=== PATIENT | male | born 1970 | race Caucasian/White ===

== ENCOUNTER 2024-02-26 01:23 | Emergency (ER) | payer BC ==
--- OUTSIDE RECORDS SUMMARY | 2024-02-26 01:27 | XMS REPORT | Continuity of Care Document ---
Author Name Unknown Address [address] [facility] [address] [place] [address] [facility] Address [address] [facility] [address] [place] [address] Care Team Providers Care Diagnostic Imaging Manager Name Role Phone Juliano Ribeiro Primary Care Physician [phone] Dory Attending Clinician Unavail able Leo Levy Attending Clinician Unavailab Darrius Lara Attending Clinician Unavailable Lobo Attending Clinician Unavail able Josy Pierre Attending Clinician Unavailable Luis Miguel Rodriguez MD Attending Clinician [phone] Domingo Myers Attending Clinician Unavailab le Brent Attending Clinician Unavail able LUIS MIGUEL RODRIGUEZ Attending Clinician Unavail able LUIS MIGUEL RODRIGUEZ Attending Clinician Unavail able Doctor Unassigned, [place] Attending Clinician U navailable Dory Admitting Clinician Unavail able Domingo Myers Admitting Clinician Unavailab le Lobo Admitting Clinician Unavail able @[phone] Admitting Clinician Unavailable Brent Admitting Clinician Unavail able LUIS MIGUEL RODRIGUEZ Admitting Clinician Unavail able Payers Payer Name Policy Type Policy Number Effective Date Expirati on Date Source [place] [id number] 2023 [place] [id number] 2022 00:00:00 Problems Condition Name Condition Details Condition Category Status Onset Date Resolution Date Last Treatment Date Treating Clinician Comments Source Tibialis anterior tendinitis Tibialis Anterior Tendinitis Problem Active 11-07 00:00: 00 [facility] Non-trauma tic partial tear of right rotator cuff Non-trauma tic Partial Tear of Right Rotator Cuff Problem Active 2022-10 00:00: 00 [facility] Tendinitis of long head of biceps brachii of right shoulder Tendinitis of Long Head of Biceps Brachii of Right Shoulder Problem Active 2022-10 00:00: 00 [facility] Tendinitis of right rotator cuff Tendinitis of Right Rotator Cuff Problem Active 2022-10 00:00: 00 [facility] Traumatic rupture of rotator cuff Traumatic Rupture of Rotator Cuff Problem Active 2022-10 00:00: 00 [facility] Tenosynovi tis of right radial styloid Tenosynovi tis of Right Radial Styloid Problem Active 2022-10 00:00: 00 [facility] Pain of right shoulder joint Pain of Right Shoulder Joint Problem Active 2022-10 00:00: 00 [facility] Closed dislocatio n of interphala ngeal joint of thumb Closed Dislocatio n of Interphala ngeal Joint of Thumb Problem Active 2022-10 00:00: 00 [facility] Right-side d piriformis syndrome Right-side d Piriformis Syndrome Problem Active 06-12 00:00: 00 [facility] Spontaneou s rupture of extensor tendons Spontaneou s Rupture of Extensor Tendons Problem Active 5-04 00:00: 00 [facility] Tendonitis of left foot Tendonitis of Left Foot Problem Active 5-04 00:00: 00 [facility] Pain in left foot Pain in Left Foot Problem Active 4- 00:00: 00 [facility] Localized, primary osteoarthr itis of the ankle and/or foot Localized, Primary Osteoarthr itis of the Ankle And/or Foot Problem Active 1-11 00:00: 00 [facility] No known active problems No known active problems Disease [facility] Allergies, Adverse Reactions, Alerts Allergy Name Allergy Type Status Severity Reaction(s) Onset Date Inactive Date Treating Clinician Comments Source No Known Allergie s DA Active U - 00:00: 00 [facility] Allergy to substanc e Active [facility] NO KNOWN ALLERGIE S Drug Class Active [facility] Social History Social Habit Start Date Stop Date Quantity Comments Source Exposure to SARS-CoV-2 (event) Not sure [facility] Gender identity [facility] 2021-05-24 00:00:00 2021-[facility]-24 00[facility]00 [facility] Sex Assigned At 1970 00:00:00 1970 00:00:00 [facility] Smoking Status Start Date Stop Date Source Tobacco smoking consumption unknown [facility] Former Smoker [facility] Medications Ordered Medication Name Filled Medication Name Start Date Stop Date Current Medication? Ordering Clinician Indication Dosage Frequency Signature (SIG) Comments Components Source azithromyci n 250 mg tablet TAKE 2 TABLETS BY MOUTH ON DAY 1, THEN 1 TABLET DAILY ON DAYS 2 TO 5. azithromyci n 250 mg tablet TAKE 2 TABLETS BY MOUTH ON DAY 1, THEN 1 TABLET DAILY ON DAYS 2 TO 5. No azithromyc in 250 mg tablet TAKE 2 TABLETS BY MOUTH ON DAY 1, THEN 1 TABLET DAILY ON DAYS 2 TO 5. [facility] methocarbam ol 750 mg tablet TAKE ONE (1) OR TWO (2) TABLET(S) BY MOUTH EVERY EIGHT HOURS NEEDED FOR MUSCLE SPASMS. methocarbam ol 750 mg tablet TAKE ONE (1) OR TWO (2) TABLET(S) BY MOUTH EVERY EIGHT HOURS NEEDED FOR MUSCLE SPASMS. No methocarba mol 750 mg tablet TAKE ONE (1) OR TWO (2) TABLET(S) BY MOUTH EVERY EIGHT HOURS NEEDED FOR MUSCLE SPASMS. [facility] Paxlovid 300 mg (150 mg x 2)-100 mg tablets in a dose pack (EUA) TAKE THREE (3) TABLET(S) BY MOUTH TWICE A DAY FOR 5 DAYS. Paxlovid 300 mg (150 mg x 2)-100 mg tablets in a dose pack (EUA) TAKE THREE (3) TABLET(S) BY MOUTH TWICE A DAY FOR 5 DAYS. No Paxlovid 300 mg (150 mg x 2)-100 mg tablets in a dose pack (EUA) TAKE THREE (3) TABLET(S) BY MOUTH TWICE A DAY FOR 5 DAYS. [facility] sumatriptan 5 mg/actuatio n nasal spray INSTILL ONE (1) SPRAY INTO THE NOSTRIL ONCE NEEDED. sumatriptan 5 mg/actuatio n nasal spray INSTILL ONE (1) SPRAY INTO THE NOSTRIL ONCE NEEDED. No sumatripta n 5 mg/actuati on nasal spray INSTILL ONE (1) SPRAY INTO THE NOSTRIL ONCE NEEDED. [facility] tadalafil 20 mg tablet TAKE ONE (1) TABLET(S) BY MOUTH 15 TO 30 MINUTES PRIOR TO SEXUAL ACTIVITY. tadalafil 20 mg tablet TAKE ONE (1) TABLET(S) BY MOUTH 15 TO 30 MINUTES PRIOR TO SEXUAL ACTIVITY. No tadalafil 20 mg tablet TAKE ONE (1) TABLET(S) BY MOUTH 15 TO 30 MINUTES PRIOR TO SEXUAL ACTIVITY. [facility] tadalafil 20 mg tablet (pulmonary hypertensio n) TAKE ONE (1) TABLET(S) BY MOUTH DAILY. tadalafil 20 mg tablet (pulmonary hypertensio n) TAKE ONE (1) TABLET(S) BY MOUTH DAILY. No tadalafil 20 mg tablet (pulmonary hypertensi on) TAKE ONE (1) TABLET(S) BY MOUTH DAILY. [facility] trazodone 100 mg tablet TAKE ONE (1) TABLET(S) BY MOUTH ONCE A DAY. trazodone 100 mg tablet TAKE ONE (1) TABLET(S) BY MOUTH ONCE A DAY. No trazodone 100 mg tablet TAKE ONE (1) TABLET(S) BY MOUTH ONCE A DAY. [facility] valacyclovi r 1 gram tablet TAKE ONE (1) TABLET(S) BY MOUTH ONCE A DAY. valacyclovi r 1 gram tablet TAKE ONE (1) TABLET(S) BY MOUTH ONCE A DAY. No valacyclov ir 1 gram tablet TAKE ONE (1) TABLET(S) BY MOUTH ONCE A DAY. [facility] Descovy 200 mg-25 mg tablet TAKE ONE (1) TABLET(S) BY MOUTH ONCE A DAY. Descovy 200 mg-25 mg tablet TAKE ONE (1) TABLET(S) BY MOUTH ONCE A DAY. No Descovy 200 mg-25 mg tablet TAKE ONE (1) TABLET(S) BY MOUTH ONCE A DAY. [facility] diclofenac ER 100 mg tablet,exte nded release 24 hr TAKE ONE (1) TABLET(S) BY MOUTH ONCE A DAY AT BEDTIME. diclofenac ER 100 mg tablet,exte nded release 24 hr TAKE ONE (1) TABLET(S) BY MOUTH ONCE A DAY AT BEDTIME. No diclofenac ER 100 mg tablet,ext ended release 24 hr TAKE ONE (1) TABLET(S) BY MOUTH ONCE A DAY AT BEDTIME. [facility] hydrocodone 10 mg-acetamin ophen 325 mg tablet TAKE ONE (1) TABLET(S) BY MOUTH EVERY SIX HOURS. hydrocodone 10 mg-acetamin ophen 325 mg tablet TAKE ONE (1) TABLET(S) BY MOUTH EVERY SIX HOURS. No hydrocodon e 10 mg-acetami nophen 325 mg tablet TAKE ONE (1) TABLET(S) BY MOUTH EVERY SIX HOURS. [facility] methocarbam ol 750 mg tablet TAKE ONE (1) OR TWO (2) TABLET(S) BY MOUTH EVERY EIGHT HOURS NEEDED FOR MUSCLE SPASMS. methocarbam ol 750 mg tablet TAKE ONE (1) OR TWO (2) TABLET(S) BY MOUTH EVERY EIGHT HOURS NEEDED FOR MUSCLE SPASMS. No methocarba mol 750 mg tablet TAKE ONE (1) OR TWO (2) TABLET(S) BY MOUTH EVERY EIGHT HOURS NEEDED FOR MUSCLE SPASMS. [facility] Descovy 200 mg-25 mg tablet TAKE ONE (1) TABLET(S) BY MOUTH ONCE A DAY. Descovy 200 mg-25 mg tablet TAKE ONE (1) TABLET(S) BY MOUTH ONCE A DAY. No Descovy 200 mg-25 mg tablet TAKE ONE (1) TABLET(S) BY MOUTH ONCE A DAY. [facility] hydrocodone 10 mg-acetamin ophen 325 mg tablet TAKE ONE (1) TABLET(S) BY MOUTH EVERY SIX HOURS NEEDED. hydrocodone 10 mg-acetamin ophen 325 mg tablet TAKE ONE (1) TABLET(S) BY MOUTH EVERY SIX HOURS NEEDED. No hydrocodon e 10 mg-acetami nophen 325 mg tablet TAKE ONE (1) TABLET(S) BY MOUTH EVERY SIX HOURS NEEDED. [facility] sumatriptan 5 mg/actuatio n nasal spray INSTILL ONE (1) SPRAY INTO THE NOSTRIL ONCE NEEDED. sumatriptan 5 mg/actuatio n nasal spray INSTILL ONE (1) SPRAY INTO THE NOSTRIL ONCE NEEDED. No sumatripta n 5 mg/actuati on nasal spray INSTILL ONE (1) SPRAY INTO THE NOSTRIL ONCE NEEDED. [facility] tadalafil 20 mg tablet (pulmonary hypertensio n) TAKE ONE (1) TABLET(S) BY MOUTH 15 TO 30 MINUTES BEFORE ACTIVITY. tadalafil 20 mg tablet (pulmonary hypertensio n) TAKE ONE (1) TABLET(S) BY MOUTH 15 TO 30 MINUTES BEFORE ACTIVITY. No tadalafil 20 mg tablet (pulmonary hypertensi on) TAKE ONE (1) TABLET(S) BY MOUTH 15 TO 30 MINUTES BEFORE ACTIVITY. [facility] trazodone 100 mg tablet TAKE ONE (1) TABLET(S) BY MOUTH ONCE A DAY. trazodone 100 mg tablet TAKE ONE (1) TABLET(S) BY MOUTH ONCE A DAY. No trazodone 100 mg tablet TAKE ONE (1) TABLET(S) BY MOUTH ONCE A DAY. [facility] valacyclovi r 1 gram tablet TAKE ONE (1) TABLET(S) BY MOUTH ONCE A DAY. valacyclovi r 1 gram tablet TAKE ONE (1) TABLET(S) BY MOUTH ONCE A DAY. No valacyclov ir 1 gram tablet TAKE ONE (1) TABLET(S) BY MOUTH ONCE A DAY. [facility] Paxlovid 300 mg (150 mg x 2)-100 mg tablets in a dose pack (EUA) TAKE THREE (3) TABLET(S) BY MOUTH TWICE A DAY FOR 5 DAYS. Paxlovid 300 mg (150 mg x 2)-100 mg tablets in a dose pack (EUA) TAKE THREE (3) TABLET(S) BY MOUTH TWICE A DAY FOR 5 DAYS. No Paxlovid 300 mg (150 mg x 2)-100 mg tablets in a dose pack (EUA) TAKE THREE (3) TABLET(S) BY MOUTH TWICE A DAY FOR 5 DAYS. [facility] sumatriptan 5 mg/actuatio n nasal spray INSTILL ONE (1) SPRAY INTO NOSTRIL ONCE NEEDED. sumatriptan 5 mg/actuatio n nasal spray INSTILL ONE (1) SPRAY INTO NOSTRIL ONCE NEEDED. No sumatripta n 5 mg/actuati on nasal spray INSTILL ONE (1) SPRAY INTO NOSTRIL ONCE NEEDED. [facility] Descovy 200 mg-25 mg tablet TAKE ONE (1) TABLET(S) BY MOUTH ONCE A DAY. Descovy 200 mg-25 mg tablet TAKE ONE (1) TABLET(S) BY MOUTH ONCE A DAY. No Descovy 200 mg-25 mg tablet TAKE ONE (1) TABLET(S) BY MOUTH ONCE A DAY. [facility] hydrocodone 10 mg-acetamin ophen 325 mg tablet TAKE ONE (1) TABLET(S) BY MOUTH EVERY SIX HOURS NEEDED. hydrocodone 10 mg-acetamin ophen 325 mg tablet TAKE ONE (1) TABLET(S) BY MOUTH EVERY SIX HOURS NEEDED. No hydrocodon e 10 mg-acetami nophen 325 mg tablet TAKE ONE (1) TABLET(S) BY MOUTH EVERY SIX HOURS NEEDED. [facility] sumatriptan 5 mg/actuatio n nasal spray INSTILL ONE (1) SPRAY INTO THE NOSTRIL ONCE NEEDED. sumatriptan 5 mg/actuatio n nasal spray INSTILL ONE (1) SPRAY INTO THE NOSTRIL ONCE NEEDED. No sumatripta n 5 mg/actuati on nasal spray INSTILL ONE (1) SPRAY INTO THE NOSTRIL ONCE NEEDED. [facility] tadalafil 20 mg tablet (pulmonary hypertensio n) TAKE ONE (1) TABLET(S) BY MOUTH 15 TO 30 MINUTES BEFORE ACTIVITY. tadalafil 20 mg tablet (pulmonary hypertensio n) TAKE ONE (1) TABLET(S) BY MOUTH 15 TO 30 MINUTES BEFORE ACTIVITY. No tadalafil 20 mg tablet (pulmonary hypertensi on) TAKE ONE (1) TABLET(S) BY MOUTH 15 TO 30 MINUTES BEFORE ACTIVITY. [facility] trazodone 100 mg tablet TAKE ONE (1) TABLET(S) BY MOUTH ONCE A DAY. trazodone 100 mg tablet TAKE ONE (1) TABLET(S) BY MOUTH ONCE A DAY. No trazodone 100 mg tablet TAKE ONE (1) TABLET(S) BY MOUTH ONCE A DAY. [facility] valacyclovi r 1 gram tablet TAKE ONE (1) TABLET(S) BY MOUTH ONCE A DAY. valacyclovi r 1 gram tablet TAKE ONE (1) TABLET(S) BY MOUTH ONCE A DAY. No valacyclov ir 1 gram tablet TAKE ONE (1) TABLET(S) BY MOUTH ONCE A DAY. [facility] Descovy 200 mg-25 mg tablet TAKE ONE (1) TABLET(S) BY MOUTH ONCE A DAY. Descovy 200 mg-25 mg tablet TAKE ONE (1) TABLET(S) BY MOUTH ONCE A DAY. No Descovy 200 mg-25 mg tablet TAKE ONE (1) TABLET(S) BY MOUTH ONCE A DAY. [facility] tadalafil 20 mg tablet TAKE ONE (1) TABLET(S) BY MOUTH 15-30 MINUTES BEFORE SEXUAL ACTIVITY NEEDED. tadalafil 20 mg tablet TAKE ONE (1) TABLET(S) BY MOUTH 15-30 MINUTES BEFORE SEXUAL ACTIVITY NEEDED. No tadalafil 20 mg tablet TAKE ONE (1) TABLET(S) BY MOUTH 15-30 MINUTES BEFORE SEXUAL ACTIVITY NEEDED. [facility] hydrocodone 10 mg-acetamin ophen 325 mg tablet TAKE ONE (1) TABLET(S) BY MOUTH EVERY SIX HOURS NEEDED. hydrocodone 10 mg-acetamin ophen 325 mg tablet TAKE ONE (1) TABLET(S) BY MOUTH EVERY SIX HOURS NEEDED. No hydrocodon e 10 mg-acetami nophen 325 mg tablet TAKE ONE (1) TABLET(S) BY MOUTH EVERY SIX HOURS NEEDED. [facility] sumatriptan 5 mg/actuatio n nasal spray INSTILL ONE (1) SPRAY INTO THE NOSTRIL ONCE NEEDED. sumatriptan 5 mg/actuatio n nasal spray INSTILL ONE (1) SPRAY INTO THE NOSTRIL ONCE NEEDED. No sumatripta n 5 mg/actuati on nasal spray INSTILL ONE (1) SPRAY INTO THE NOSTRIL ONCE NEEDED. [facility] tadalafil 20 mg tablet (pulmonary hypertensio n) TAKE ONE (1) TABLET(S) BY MOUTH 15 TO 30 MINUTES BEFORE ACTIVITY. tadalafil 20 mg tablet (pulmonary hypertensio n) TAKE ONE (1) TABLET(S) BY MOUTH 15 TO 30 MINUTES BEFORE ACTIVITY. No tadalafil 20 mg tablet (pulmonary hypertensi on) TAKE ONE (1) TABLET(S) BY MOUTH 15 TO 30 MINUTES BEFORE ACTIVITY. [facility] trazodone 100 mg tablet TAKE ONE (1) TABLET(S) BY MOUTH ONCE A DAY. trazodone 100 mg tablet TAKE ONE (1) TABLET(S) BY MOUTH ONCE A DAY. No trazodone 100 mg tablet TAKE ONE (1) TABLET(S) BY MOUTH ONCE A DAY. [facility] valacyclovi r 1 gram tablet TAKE ONE (1) TABLET(S) BY MOUTH ONCE A DAY. valacyclovi r 1 gram tablet TAKE ONE (1) TABLET(S) BY MOUTH ONCE A DAY. No valacyclov ir 1 gram tablet TAKE ONE (1) TABLET(S) BY MOUTH ONCE A DAY. [facility] tadalafil 20 mg tablet (pulmonary hypertensio n) TAKE ONE (1) TABLET(S) BY MOUTH DAILY. tadalafil 20 mg tablet (pulmonary hypertensio n) TAKE ONE (1) TABLET(S) BY MOUTH DAILY. No tadalafil 20 mg tablet (pulmonary hypertensi on) TAKE ONE (1) TABLET(S) BY MOUTH DAILY. [facility] Descovy 200 mg-25 mg tablet TAKE ONE (1) TABLET(S) BY MOUTH ONCE A DAY. Descovy 200 mg-25 mg tablet TAKE ONE (1) TABLET(S) BY MOUTH ONCE A DAY. No Descovy 200 mg-25 mg tablet TAKE ONE (1) TABLET(S) BY MOUTH ONCE A DAY. [facility] hydrocodone 10 mg-acetamin ophen 325 mg tablet TAKE ONE (1) TABLET(S) BY MOUTH EVERY SIX HOURS NEEDED. hydrocodone 10 mg-acetamin ophen 325 mg tablet TAKE ONE (1) TABLET(S) BY MOUTH EVERY SIX HOURS NEEDED. No hydrocodon e 10 mg-acetami nophen 325 mg tablet TAKE ONE (1) TABLET(S) BY MOUTH EVERY SIX HOURS NEEDED. [facility] trazodone 100 mg tablet TAKE ONE (1) TABLET(S) BY MOUTH AT BEDTIME NEEDED. trazodone 100 mg tablet TAKE ONE (1) TABLET(S) BY MOUTH AT BEDTIME NEEDED. No trazodone 100 mg tablet TAKE ONE (1) TABLET(S) BY MOUTH AT BEDTIME NEEDED. [facility] methocarbam ol 500 mg tablet Take 1 tablet every 8 hours by oral route as needed. methocarbam ol 500 mg tablet Take 1 tablet every 8 hours by oral route as needed. No 1 Q8H methocarba mol 500 mg tablet Take 1 tablet every 8 hours by oral route as needed. [facility] sumatriptan 5 mg/actuatio n nasal spray INSTILL ONE (1) SPRAY INTO THE NOSTRIL ONCE NEEDED. sumatriptan 5 mg/actuatio n nasal spray INSTILL ONE (1) SPRAY INTO THE NOSTRIL ONCE NEEDED. No sumatripta n 5 mg/actuati on nasal spray INSTILL ONE (1) SPRAY INTO THE NOSTRIL ONCE NEEDED. [facility] tadalafil 20 mg tablet (pulmonary hypertensio n) TAKE ONE (1) TABLET(S) BY MOUTH 15 TO 30 MINUTES BEFORE ACTIVITY. tadalafil 20 mg tablet (pulmonary hypertensio n) TAKE ONE (1) TABLET(S) BY MOUTH 15 TO 30 MINUTES BEFORE ACTIVITY. No tadalafil 20 mg tablet (pulmonary hypertensi on) TAKE ONE (1) TABLET(S) BY MOUTH 15 TO 30 MINUTES BEFORE ACTIVITY. [facility] trazodone 100 mg tablet TAKE ONE (1) TABLET(S) BY MOUTH ONCE A DAY. trazodone 100 mg tablet TAKE ONE (1) TABLET(S) BY MOUTH ONCE A DAY. No trazodone 100 mg tablet TAKE ONE (1) TABLET(S) BY MOUTH ONCE A DAY. [facility] valacyclovi r 1 gram tablet TAKE ONE (1) TABLET(S) BY MOUTH ONCE A DAY. valacyclovi r 1 gram tablet TAKE ONE (1) TABLET(S) BY MOUTH ONCE A DAY. No valacyclov ir 1 gram tablet TAKE ONE (1) TABLET(S) BY MOUTH ONCE A DAY. [facility] valacyclovi r 1 gram tablet TAKE ONE (1) TABLET(S) BY MOUTH DAILY. valacyclovi r 1 gram tablet TAKE ONE (1) TABLET(S) BY MOUTH DAILY. No valacyclov ir 1 gram tablet TAKE ONE (1) TABLET(S) BY MOUTH DAILY. [facility] Descovy 200 mg-25 mg tablet TAKE ONE (1) TABLET(S) BY MOUTH ONCE A DAY. Descovy 200 mg-25 mg tablet TAKE ONE (1) TABLET(S) BY MOUTH ONCE A DAY. No Descovy 200 mg-25 mg tablet TAKE ONE (1) TABLET(S) BY MOUTH ONCE A DAY. [facility] hydrocodone 10 mg-acetamin ophen 325 mg tablet TAKE ONE (1) TABLET(S) BY MOUTH EVERY SIX HOURS NEEDED. hydrocodone 10 mg-acetamin ophen 325 mg tablet TAKE ONE (1) TABLET(S) BY MOUTH EVERY SIX HOURS NEEDED. No hydrocodon e 10 mg-acetami nophen 325 mg tablet TAKE ONE (1) TABLET(S) BY MOUTH EVERY SIX HOURS NEEDED. [facility] methocarbam ol 500 mg tablet Take 1 tablet every 8 hours by oral route as needed. methocarbam ol 500 mg tablet Take 1 tablet every 8 hours by oral route as needed. No 1 Q8H methocarba mol 500 mg tablet Take 1 tablet every 8 hours by oral route as needed. [facility] sumatriptan 5 mg/actuatio n nasal spray INSTILL ONE (1) SPRAY INTO THE NOSTRIL ONCE NEEDED. sumatriptan 5 mg/actuatio n nasal spray INSTILL ONE (1) SPRAY INTO THE NOSTRIL ONCE NEEDED. No sumatripta n 5 mg/actuati on nasal spray INSTILL ONE (1) SPRAY INTO THE NOSTRIL ONCE NEEDED. [facility] tadalafil 20 mg tablet (pulmonary hypertensio n) TAKE ONE (1) TABLET(S) BY MOUTH 15 TO 30 MINUTES BEFORE ACTIVITY. tadalafil 20 mg tablet (pulmonary hypertensio n) TAKE ONE (1) TABLET(S) BY MOUTH 15 TO 30 MINUTES BEFORE ACTIVITY. No tadalafil 20 mg tablet (pulmonary hypertensi on) TAKE ONE (1) TABLET(S) BY MOUTH 15 TO 30 MINUTES BEFORE ACTIVITY. [facility] trazodone 100 mg tablet TAKE ONE (1) TABLET(S) BY MOUTH ONCE A DAY. trazodone 100 mg tablet TAKE ONE (1) TABLET(S) BY MOUTH ONCE A DAY. No trazodone 100 mg tablet TAKE ONE (1) TABLET(S) BY MOUTH ONCE A DAY. [facility] valacyclovi r 1 gram tablet TAKE ONE (1) TABLET(S) BY MOUTH ONCE A DAY. valacyclovi r 1 gram tablet TAKE ONE (1) TABLET(S) BY MOUTH ONCE A DAY. No valacyclov ir 1 gram tablet TAKE ONE (1) TABLET(S) BY MOUTH ONCE A DAY. [facility] Descovy 200 mg-25 mg tablet TAKE ONE (1) TABLET(S) BY MOUTH ONCE A DAY. Descovy 200 mg-25 mg tablet TAKE ONE (1) TABLET(S) BY MOUTH ONCE A DAY. No Descovy 200 mg-25 mg tablet TAKE ONE (1) TABLET(S) BY MOUTH ONCE A DAY. [facility] hydrocodone 10 mg-acetamin ophen 325 mg tablet TAKE ONE (1) TABLET(S) BY MOUTH EVERY SIX HOURS NEEDED. hydrocodone 10 mg-acetamin ophen 325 mg tablet TAKE ONE (1) TABLET(S) BY MOUTH EVERY SIX HOURS NEEDED. No hydrocodon e 10 mg-acetami nophen 325 mg tablet TAKE ONE (1) TABLET(S) BY MOUTH EVERY SIX HOURS NEEDED. [facility] methocarbam ol 500 mg tablet TAKE ONE (1) TABLET BY MOUTH EVERY 8 HOURS NEEDED. methocarbam ol 500 mg tablet TAKE ONE (1) TABLET BY MOUTH EVERY 8 HOURS NEEDED. No methocarba mol 500 mg tablet TAKE ONE (1) TABLET BY MOUTH EVERY 8 HOURS NEEDED. [facility] sumatriptan 5 mg/actuatio n nasal spray INSTILL ONE (1) SPRAY INTO THE NOSTRIL ONCE NEEDED. sumatriptan 5 mg/actuatio n nasal spray INSTILL ONE (1) SPRAY INTO THE NOSTRIL ONCE NEEDED. No sumatripta n 5 mg/actuati on nasal spray INSTILL ONE (1) SPRAY INTO THE NOSTRIL ONCE NEEDED. [facility] tadalafil 20 mg tablet (pulmonary hypertensio n) TAKE ONE (1) TABLET(S) BY MOUTH 15 TO 30 MINUTES BEFORE ACTIVITY. tadalafil 20 mg tablet (pulmonary hypertensio n) TAKE ONE (1) TABLET(S) BY MOUTH 15 TO 30 MINUTES BEFORE ACTIVITY. No tadalafil 20 mg tablet (pulmonary hypertensi on) TAKE ONE (1) TABLET(S) BY MOUTH 15 TO 30 MINUTES BEFORE ACTIVITY. [facility] trazodone 100 mg tablet TAKE ONE (1) TABLET(S) BY MOUTH ONCE A DAY. trazodone 100 mg tablet TAKE ONE (1) TABLET(S) BY MOUTH ONCE A DAY. No trazodone 100 mg tablet TAKE ONE (1) TABLET(S) BY MOUTH ONCE A DAY. [facility] valacyclovi r 1 gram tablet TAKE ONE (1) TABLET(S) BY MOUTH ONCE A DAY. valacyclovi r 1 gram tablet TAKE ONE (1) TABLET(S) BY MOUTH ONCE A DAY. No valacyclov ir 1 gram tablet TAKE ONE (1) TABLET(S) BY MOUTH ONCE A DAY. [facility] Descovy 200 mg-25 mg tablet TAKE ONE (1) TABLET(S) BY MOUTH ONCE A DAY. Descovy 200 mg-25 mg tablet TAKE ONE (1) TABLET(S) BY MOUTH ONCE A DAY. No Descovy 200 mg-25 mg tablet TAKE ONE (1) TABLET(S) BY MOUTH ONCE A DAY. [facility] hydrocodone 10 mg-acetamin ophen 325 mg tablet TAKE ONE (1) TABLET(S) BY MOUTH EVERY SIX HOURS NEEDED. hydrocodone 10 mg-acetamin ophen 325 mg tablet TAKE ONE (1) TABLET(S) BY MOUTH EVERY SIX HOURS NEEDED. No hydrocodon e 10 mg-acetami nophen 325 mg tablet TAKE ONE (1) TABLET(S) BY MOUTH EVERY SIX HOURS NEEDED. [facility] methocarbam ol 500 mg tablet TAKE ONE (1) TABLET BY MOUTH EVERY 8 HOURS NEEDED. methocarbam ol 500 mg tablet TAKE ONE (1) TABLET BY MOUTH EVERY 8 HOURS NEEDED. No methocarba mol 500 mg tablet TAKE ONE (1) TABLET BY MOUTH EVERY 8 HOURS NEEDED. [facility] sumatriptan 5 mg/actuatio n nasal spray INSTILL ONE (1) SPRAY INTO THE NOSTRIL ONCE NEEDED. sumatriptan 5 mg/actuatio n nasal spray INSTILL ONE (1) SPRAY INTO THE NOSTRIL ONCE NEEDED. No sumatripta n 5 mg/actuati on nasal spray INSTILL ONE (1) SPRAY INTO THE NOSTRIL ONCE NEEDED. [facility] tadalafil 20 mg tablet (pulmonary hypertensio n) TAKE ONE (1) TABLET(S) BY MOUTH 15 TO 30 MINUTES BEFORE ACTIVITY. tadalafil 20 mg tablet (pulmonary hypertensio n) TAKE ONE (1) TABLET(S) BY MOUTH 15 TO 30 MINUTES BEFORE ACTIVITY. No tadalafil 20 mg tablet (pulmonary hypertensi on) TAKE ONE (1) TABLET(S) BY MOUTH 15 TO 30 MINUTES BEFORE ACTIVITY. [facility] trazodone 100 mg tablet TAKE ONE (1) TABLET(S) BY MOUTH ONCE A DAY. trazodone 100 mg tablet TAKE ONE (1) TABLET(S) BY MOUTH ONCE A DAY. No trazodone 100 mg tablet TAKE ONE (1) TABLET(S) BY MOUTH ONCE A DAY. [facility] valacyclovi r 1 gram tablet TAKE ONE (1) TABLET(S) BY MOUTH ONCE A DAY. valacyclovi r 1 gram tablet TAKE ONE (1) TABLET(S) BY MOUTH ONCE A DAY. No valacyclov ir 1 gram tablet TAKE ONE (1) TABLET(S) BY MOUTH ONCE A DAY. [facility] albuterol sulfate HFA 90 mcg/actuati on aerosol inhaler INHALE TWO (2) PUFF(S) BY MOUTH EVERY FOUR TO SIX HOURS. albuterol sulfate HFA 90 mcg/actuati on aerosol inhaler INHALE TWO (2) PUFF(S) BY MOUTH EVERY FOUR TO SIX HOURS. No albuterol sulfate HFA 90 mcg/actuat ion aerosol inhaler INHALE TWO (2) PUFF(S) BY MOUTH EVERY FOUR TO SIX HOURS. [facility] bromphenira mine-pseudo ephedrine-D M 2 mg-30 mg-10 mg/5 mL oral syrup TAKE FIVE (5) ML(S) BY MOUTH FOUR TIMES A DAY FOR 10 DAYS. bromphenira mine-pseudo ephedrine-D M 2 mg-30 mg-10 mg/5 mL oral syrup TAKE FIVE (5) ML(S) BY MOUTH FOUR TIMES A DAY FOR 10 DAYS. No bromphenir amine-pseu doephedrin e-DM 2 mg-30 mg-10 mg/5 mL oral syrup TAKE FIVE (5) ML(S) BY MOUTH FOUR TIMES A DAY FOR 10 DAYS. [facility] Descovy 200 mg-25 mg tablet TAKE ONE (1) TABLET(S) BY MOUTH ONCE A DAY. Descovy 200 mg-25 mg tablet TAKE ONE (1) TABLET(S) BY MOUTH ONCE A DAY. No Descovy 200 mg-25 mg tablet TAKE ONE (1) TABLET(S) BY MOUTH ONCE A DAY. [facility] hydrocodone 10 mg-acetamin ophen 325 mg tablet TAKE ONE (1) TABLET(S) BY MOUTH EVERY SIX HOURS NEEDED. hydrocodone 10 mg-acetamin ophen 325 mg tablet TAKE ONE (1) TABLET(S) BY MOUTH EVERY SIX HOURS NEEDED. No hydrocodon e 10 mg-acetami nophen 325 mg tablet TAKE ONE (1) TABLET(S) BY MOUTH EVERY SIX HOURS NEEDED. [facility] methocarbam ol 500 mg tablet TAKE ONE (1) TABLET BY MOUTH EVERY 8 HOURS NEEDED. methocarbam ol 500 mg tablet TAKE ONE (1) TABLET BY MOUTH EVERY 8 HOURS NEEDED. No methocarba mol 500 mg tablet TAKE ONE (1) TABLET BY MOUTH EVERY 8 HOURS NEEDED. [facility] oseltamivir 75 mg capsule TAKE ONE (1) CAPSULE(S) BY MOUTH TWICE A DAY FOR 5 DAYS. oseltamivir 75 mg capsule TAKE ONE (1) CAPSULE(S) BY MOUTH TWICE A DAY FOR 5 DAYS. No oseltamivi r 75 mg capsule TAKE ONE (1) CAPSULE(S) BY MOUTH TWICE A DAY FOR 5 DAYS. [facility] sumatriptan 5 mg/actuatio n nasal spray INSTILL ONE (1) SPRAY INTO THE NOSTRIL ONCE NEEDED. sumatriptan 5 mg/actuatio n nasal spray INSTILL ONE (1) SPRAY INTO THE NOSTRIL ONCE NEEDED. No sumatripta n 5 mg/actuati on nasal spray INSTILL ONE (1) SPRAY INTO THE NOSTRIL ONCE NEEDED. [facility] tadalafil 20 mg tablet (pulmonary hypertensio n) TAKE ONE (1) TABLET(S) BY MOUTH 15 TO 30 MINUTES BEFORE ACTIVITY. tadalafil 20 mg tablet (pulmonary hypertensio n) TAKE ONE (1) TABLET(S) BY MOUTH 15 TO 30 MINUTES BEFORE ACTIVITY. No tadalafil 20 mg tablet (pulmonary hypertensi on) TAKE ONE (1) TABLET(S) BY MOUTH 15 TO 30 MINUTES BEFORE ACTIVITY. [facility] trazodone 100 mg tablet TAKE ONE (1) TABLET(S) BY MOUTH ONCE A DAY. trazodone 100 mg tablet TAKE ONE (1) TABLET(S) BY MOUTH ONCE A DAY. No trazodone 100 mg tablet TAKE ONE (1) TABLET(S) BY MOUTH ONCE A DAY. [facility] valacyclovi r 1 gram tablet TAKE ONE (1) TABLET(S) BY MOUTH ONCE A DAY. valacyclovi r 1 gram tablet TAKE ONE (1) TABLET(S) BY MOUTH ONCE A DAY. No valacyclov ir 1 gram tablet TAKE ONE (1) TABLET(S) BY MOUTH ONCE A DAY. [facility] azithromyci n 250 mg tablet TAKE 2 TABLETS BY MOUTH ON DAY 1, THEN 1 TABLET DAILY ON DAYS 2 TO 5. azithromyci n 250 mg tablet TAKE 2 TABLETS BY MOUTH ON DAY 1, THEN 1 TABLET DAILY ON DAYS 2 TO 5. No azithromyc in 250 mg tablet TAKE 2 TABLETS BY MOUTH ON DAY 1, THEN 1 TABLET DAILY ON DAYS 2 TO 5. [facility] Descovy 200 mg-25 mg tablet TAKE ONE (1) TABLET(S) BY MOUTH ONCE A DAY. Descovy 200 mg-25 mg tablet TAKE ONE (1) TABLET(S) BY MOUTH ONCE A DAY. No Descovy 200 mg-25 mg tablet TAKE ONE (1) TABLET(S) BY MOUTH ONCE A DAY. [facility] diclofenac ER 100 mg tablet,exte nded release 24 hr TAKE ONE (1) TABLET(S) BY MOUTH ONCE A DAY AT BEDTIME. diclofenac ER 100 mg tablet,exte nded release 24 hr TAKE ONE (1) TABLET(S) BY MOUTH ONCE A DAY AT BEDTIME. No diclofenac ER 100 mg tablet,ext ended release 24 hr TAKE ONE (1) TABLET(S) BY MOUTH ONCE A DAY AT BEDTIME. [facility] hydrocodone 10 mg-acetamin ophen 325 mg tablet TAKE ONE (1) TABLET(S) BY MOUTH EVERY SIX HOURS. hydrocodone 10 mg-acetamin ophen 325 mg tablet TAKE ONE (1) TABLET(S) BY MOUTH EVERY SIX HOURS. No hydrocodon e 10 mg-acetami nophen 325 mg tablet TAKE ONE (1) TABLET(S) BY MOUTH EVERY SIX HOURS. [facility] hydrocortis one 2.5 % topical cream APPLY TO AFFECTED AREA TWICE A DAY. hydrocortis one 2.5 % topical cream APPLY TO AFFECTED AREA TWICE A DAY. No hydrocorti sone 2.5 % topical cream APPLY TO AFFECTED AREA TWICE A DAY. [facility] ketoconazol e 2 % topical cream APPLY TO AFFECTED AREA TWICE A DAY. ketoconazol e 2 % topical cream APPLY TO AFFECTED AREA TWICE A DAY. No ketoconazo le 2 % topical cream APPLY TO AFFECTED AREA TWICE A DAY. [facility] methocarbam ol 750 mg tablet TAKE ONE (1) OR TWO (2) TABLET(S) BY MOUTH EVERY EIGHT HOURS NEEDED FOR MUSCLE SPASMS. methocarbam ol 750 mg tablet TAKE ONE (1) OR TWO (2) TABLET(S) BY MOUTH EVERY EIGHT HOURS NEEDED FOR MUSCLE SPASMS. No methocarba mol 750 mg tablet TAKE ONE (1) OR TWO (2) TABLET(S) BY MOUTH EVERY EIGHT HOURS NEEDED FOR MUSCLE SPASMS. [facility] Paxlovid 300 mg (150 mg x 2)-100 mg tablets in a dose pack (EUA) TAKE THREE (3) TABLET(S) BY MOUTH TWICE A DAY FOR 5 DAYS. Paxlovid 300 mg (150 mg x 2)-100 mg tablets in a dose pack (EUA) TAKE THREE (3) TABLET(S) BY MOUTH TWICE A DAY FOR 5 DAYS. No Paxlovid 300 mg (150 mg x 2)-100 mg tablets in a dose pack (EUA) TAKE THREE (3) TABLET(S) BY MOUTH TWICE A DAY FOR 5 DAYS. [facility] sumatriptan 5 mg/actuatio n nasal spray INSTILL ONE (1) SPRAY INTO NOSTRIL ONCE NEEDED. sumatriptan 5 mg/actuatio n nasal spray INSTILL ONE (1) SPRAY INTO NOSTRIL ONCE NEEDED. No sumatripta n 5 mg/actuati on nasal spray INSTILL ONE (1) SPRAY INTO NOSTRIL ONCE NEEDED. [facility] tadalafil 20 mg tablet TAKE ONE (1) TABLET(S) BY MOUTH 15-30 MINUTES BEFORE SEXUAL ACTIVITY NEEDED. tadalafil 20 mg tablet TAKE ONE (1) TABLET(S) BY MOUTH 15-30 MINUTES BEFORE SEXUAL ACTIVITY NEEDED. No tadalafil 20 mg tablet TAKE ONE (1) TABLET(S) BY MOUTH 15-30 MINUTES BEFORE SEXUAL ACTIVITY NEEDED. [facility] tadalafil 20 mg tablet (pulmonary hypertensio n) TAKE ONE (1) TABLET(S) BY MOUTH DAILY. tadalafil 20 mg tablet (pulmonary hypertensio n) TAKE ONE (1) TABLET(S) BY MOUTH DAILY. No tadalafil 20 mg tablet (pulmonary hypertensi on) TAKE ONE (1) TABLET(S) BY MOUTH DAILY. [facility] trazodone 100 mg tablet TAKE ONE (1) TABLET(S) BY MOUTH AT BEDTIME NEEDED. trazodone 100 mg tablet TAKE ONE (1) TABLET(S) BY MOUTH AT BEDTIME NEEDED. No trazodone 100 mg tablet TAKE ONE (1) TABLET(S) BY MOUTH AT BEDTIME NEEDED. [facility] valacyclovi r 1 gram tablet TAKE ONE (1) TABLET(S) BY MOUTH DAILY. valacyclovi r 1 gram tablet TAKE ONE (1) TABLET(S) BY MOUTH DAILY. No valacyclov ir 1 gram tablet TAKE ONE (1) TABLET(S) BY MOUTH DAILY. [facility] azithromyci n 250 mg tablet TAKE 2 TABLETS BY MOUTH ON DAY 1, THEN 1 TABLET DAILY ON DAYS 2 TO 5. azithromyci n 250 mg tablet TAKE 2 TABLETS BY MOUTH ON DAY 1, THEN 1 TABLET DAILY ON DAYS 2 TO 5. No azithromyc in 250 mg tablet TAKE 2 TABLETS BY MOUTH ON DAY 1, THEN 1 TABLET DAILY ON DAYS 2 TO 5. [facility] bupropion HCl 150 mg tablet,12 hr sustained-r elease(smok ing deterrent) TAKE ONE (1) TABLET(S) BY MOUTH TWICE A DAY. bupropion HCl 150 mg tablet,12 hr sustained-r elease(smok ing deterrent) TAKE ONE (1) TABLET(S) BY MOUTH TWICE A DAY. No bupropion HCl 150 mg tablet,12 hr sustained- release(sm oking deterrent) TAKE ONE (1) TABLET(S) BY MOUTH TWICE A DAY. [facility] cephalexin 500 mg capsule Take 1 capsule every 6 hours by oral route. cephalexin 500 mg capsule Take 1 capsule every 6 hours by oral route. No cephalexin 500 mg capsule Take 1 capsule every 6 hours by oral route. [facility] Descovy 200 mg-25 mg tablet TAKE ONE (1) TABLET(S) BY MOUTH ONCE A DAY. Descovy 200 mg-25 mg tablet TAKE ONE (1) TABLET(S) BY MOUTH ONCE A DAY. No Descovy 200 mg-25 mg tablet TAKE ONE (1) TABLET(S) BY MOUTH ONCE A DAY. [facility] diclofenac ER 100 mg tablet,exte nded release 24 hr TAKE ONE (1) TABLET(S) BY MOUTH ONCE A DAY AT BEDTIME. diclofenac ER 100 mg tablet,exte nded release 24 hr TAKE ONE (1) TABLET(S) BY MOUTH ONCE A DAY AT BEDTIME. No diclofenac ER 100 mg tablet,ext ended release 24 hr TAKE ONE (1) TABLET(S) BY MOUTH ONCE A DAY AT BEDTIME. [facility] hydrocodone 10 mg-acetamin ophen 325 mg tablet TAKE ONE (1) TABLET(S) BY MOUTH EVERY SIX HOURS. hydrocodone 10 mg-acetamin ophen 325 mg tablet TAKE ONE (1) TABLET(S) BY MOUTH EVERY SIX HOURS. No hydrocodon e 10 mg-acetami nophen 325 mg tablet TAKE ONE (1) TABLET(S) BY MOUTH EVERY SIX HOURS. [facility] hydrocodone 5 mg-acetamin ophen 325 mg tablet Take 1 tablet every 4-6 hours by oral route. hydrocodone 5 mg-acetamin ophen 325 mg tablet Take 1 tablet every 4-6 hours by oral route. No hydrocodon e 5 mg-acetami nophen 325 mg tablet Take 1 tablet every 4-6 hours by oral route. [facility] hydrocortis one 2.5 % topical cream APPLY TO AFFECTED AREA TWICE A DAY. hydrocortis one 2.5 % topical cream APPLY TO AFFECTED AREA TWICE A DAY. No hydrocorti sone 2.5 % topical cream APPLY TO AFFECTED AREA TWICE A DAY. [facility] ketoconazol e 2 % topical cream APPLY TO AFFECTED AREA TWICE A DAY. ketoconazol e 2 % topical cream APPLY TO AFFECTED AREA TWICE A DAY. No ketoconazo le 2 % topical cream APPLY TO AFFECTED AREA TWICE A DAY. [facility] methocarbam ol 750 mg tablet TAKE ONE (1) OR TWO (2) TABLET(S) BY MOUTH EVERY EIGHT HOURS NEEDED FOR MUSCLE SPASMS. methocarbam ol 750 mg tablet TAKE ONE (1) OR TWO (2) TABLET(S) BY MOUTH EVERY EIGHT HOURS NEEDED FOR MUSCLE SPASMS. No methocarba mol 750 mg tablet TAKE ONE (1) OR TWO (2) TABLET(S) BY MOUTH EVERY EIGHT HOURS NEEDED FOR MUSCLE SPASMS. [facility] Paxlovid 300 mg (150 mg x 2)-100 mg tablets in a dose pack (EUA) TAKE THREE (3) TABLET(S) BY MOUTH TWICE A DAY FOR 5 DAYS. Paxlovid 300 mg (150 mg x 2)-100 mg tablets in a dose pack (EUA) TAKE THREE (3) TABLET(S) BY MOUTH TWICE A DAY FOR 5 DAYS. No Paxlovid 300 mg (150 mg x 2)-100 mg tablets in a dose pack (EUA) TAKE THREE (3) TABLET(S) BY MOUTH TWICE A DAY FOR 5 DAYS. [facility] sumatriptan 5 mg/actuatio n nasal spray INSTILL ONE (1) SPRAY INTO NOSTRIL ONCE NEEDED. sumatriptan 5 mg/actuatio n nasal spray INSTILL ONE (1) SPRAY INTO NOSTRIL ONCE NEEDED. No sumatripta n 5 mg/actuati on nasal spray INSTILL ONE (1) SPRAY INTO NOSTRIL ONCE NEEDED. [facility] tadalafil 20 mg tablet TAKE ONE (1) TABLET(S) BY MOUTH 15-30 MINUTES BEFORE SEXUAL ACTIVITY NEEDED. tadalafil 20 mg tablet TAKE ONE (1) TABLET(S) BY MOUTH 15-30 MINUTES BEFORE SEXUAL ACTIVITY NEEDED. No tadalafil 20 mg tablet TAKE ONE (1) TABLET(S) BY MOUTH 15-30 MINUTES BEFORE SEXUAL ACTIVITY NEEDED. [facility] tadalafil 20 mg tablet (pulmonary hypertensio n) TAKE ONE (1) TABLET(S) BY MOUTH DAILY. tadalafil 20 mg tablet (pulmonary hypertensio n) TAKE ONE (1) TABLET(S) BY MOUTH DAILY. No tadalafil 20 mg tablet (pulmonary hypertensi on) TAKE ONE (1) TABLET(S) BY MOUTH DAILY. [facility] trazodone 100 mg tablet TAKE ONE (1) TABLET(S) BY MOUTH AT BEDTIME NEEDED. trazodone 100 mg tablet TAKE ONE (1) TABLET(S) BY MOUTH AT BEDTIME NEEDED. No trazodone 100 mg tablet TAKE ONE (1) TABLET(S) BY MOUTH AT BEDTIME NEEDED. [facility] valacyclovi r 1 gram tablet TAKE ONE (1) TABLET(S) BY MOUTH DAILY. valacyclovi r 1 gram tablet TAKE ONE (1) TABLET(S) BY MOUTH DAILY. No valacyclov ir 1 gram tablet TAKE ONE (1) TABLET(S) BY MOUTH DAILY. [facility] azithromyci n 250 mg tablet TAKE 2 TABLETS BY MOUTH ON DAY 1, THEN 1 TABLET DAILY ON DAYS 2 TO 5. azithromyci n 250 mg tablet TAKE 2 TABLETS BY MOUTH ON DAY 1, THEN 1 TABLET DAILY ON DAYS 2 TO 5. No azithromyc in 250 mg tablet TAKE 2 TABLETS BY MOUTH ON DAY 1, THEN 1 TABLET DAILY ON DAYS 2 TO 5. [facility] bupropion HCl 150 mg tablet,12 hr sustained-r elease(smok ing deterrent) TAKE ONE (1) TABLET(S) BY MOUTH TWICE A DAY. bupropion HCl 150 mg tablet,12 hr sustained-r elease(smok ing deterrent) TAKE ONE (1) TABLET(S) BY MOUTH TWICE A DAY. No bupropion HCl 150 mg tablet,12 hr sustained- release(sm oking deterrent) TAKE ONE (1) TABLET(S) BY MOUTH TWICE A DAY. [facility] cephalexin 500 mg capsule Take 1 capsule every 6 hours by oral route. cephalexin 500 mg capsule Take 1 capsule every 6 hours by oral route. No cephalexin 500 mg capsule Take 1 capsule every 6 hours by oral route. [facility] Descovy 200 mg-25 mg tablet TAKE ONE (1) TABLET(S) BY MOUTH ONCE A DAY. Descovy 200 mg-25 mg tablet TAKE ONE (1) TABLET(S) BY MOUTH ONCE A DAY. No Descovy 200 mg-25 mg tablet TAKE ONE (1) TABLET(S) BY MOUTH ONCE A DAY. [facility] diclofenac ER 100 mg tablet,exte nded release 24 hr TAKE ONE (1) TABLET(S) BY MOUTH ONCE A DAY AT BEDTIME. diclofenac ER 100 mg tablet,exte nded release 24 hr TAKE ONE (1) TABLET(S) BY MOUTH ONCE A DAY AT BEDTIME. No diclofenac ER 100 mg tablet,ext ended release 24 hr TAKE ONE (1) TABLET(S) BY MOUTH ONCE A DAY AT BEDTIME. [facility] hydrocodone 10 mg-acetamin ophen 325 mg tablet TAKE ONE (1) TABLET(S) BY MOUTH EVERY SIX HOURS NEEDED. hydrocodone 10 mg-acetamin ophen 325 mg tablet TAKE ONE (1) TABLET(S) BY MOUTH EVERY SIX HOURS NEEDED. No hydrocodon e 10 mg-acetami nophen 325 mg tablet TAKE ONE (1) TABLET(S) BY MOUTH EVERY SIX HOURS NEEDED. [facility] hydrocodone 5 mg-acetamin ophen 325 mg tablet Take 1 tablet every 4-6 hours by oral route. hydrocodone 5 mg-acetamin ophen 325 mg tablet Take 1 tablet every 4-6 hours by oral route. No hydrocodon e 5 mg-acetami nophen 325 mg tablet Take 1 tablet every 4-6 hours by oral route. [facility] hydrocortis one 2.5 % topical cream APPLY TO AFFECTED AREA TWICE A DAY. hydrocortis one 2.5 % topical cream APPLY TO AFFECTED AREA TWICE A DAY. No hydrocorti sone 2.5 % topical cream APPLY TO AFFECTED AREA TWICE A DAY. [facility] ketoconazol e 2 % topical cream APPLY TO AFFECTED AREA TWICE A DAY. ketoconazol e 2 % topical cream APPLY TO AFFECTED AREA TWICE A DAY. No ketoconazo le 2 % topical cream APPLY TO AFFECTED AREA TWICE A DAY. [facility] No known medications No [facility] Vital Signs Vital Name Observation Time Observation Value Comments S ource Height 2023-11-07 00:00:00 70 [in_i] [facility] BMI (Body Mass Index) 2023-11-07 00:00:00 28 kg/m2 [facility] Body Weight 2023-11-07 00:00:00 195 [lb_av] [facility] BMI (Body Mass Index) 2023-10-05 00:00:00 28 kg/m2 [facility] Height 2023-10-05 00:00:00 70 [in_i] [facility] Body Weight 2023-10-05 00:00:00 195 [lb_av] [facility] Height 2023-09-20 00:00:00 70 [in_i] [facility] Height 2023-09-14 00:00:00 70 [in_i] [facility] Body Weight 2023-09-14 00:00:00 195 [lb_av] [facility] BMI (Body Mass Index) 2023-09-14 00:00:00 28 kg/m2 [facility] Height 2023-01-25 00:00:00 70 [in_i] [facility] BMI (Body Mass Index) 2023-01-25 00:00:00 28 kg/m2 [facility] Body Weight 2023-01-25 00:00:00 195 [lb_av] [facility] Body height 2021-05-24 21:37:00 180.3 cm [facility] Body weight 2021-05-24 21:37:00 83.689 kg [facility] BMI 2021-05-24 21:37:00 25.73 kg/m2 [facility] Oxygen saturation in Arterial blood by Pulse oximetry 2021-05-24 21:37:00 95 /min [facility] Systolic blood pressure 2021-05-24 21:37:00 115 mm[Hg] [facility] Diastolic blood pressure 2021-05-24 21:37:00 83 mm[Hg] [facility] Heart rate 2021-05-24 21:37:00 115 /min [facility] Body temperature 2021-05-24 21:37:00 36.72 [facility] Respiratory rate 2021-05-24 21:37:00 18 /[facility] Systolic blood pressure 2020-02-03 21:11:00 132 mm[Hg] [facility] Diastolic blood pressure 2020-02-03 21:11:00 81 mm[Hg] [facility] Heart rate 2020-02-03 21:11:00 113 /min [facility] Body temperature 2020-02-03 21:11:00 37.17 [facility] Respiratory rate 2020-02-03 21:11:00 17 /min [facility] Body height 2020-02-03 21:11:00 177.8 cm [facility] Body weight 2020-02-03 21:11:00 84.482 kg [facility] BMI 2020-02-03 21:11:00 26.72 kg/m2 [facility] Procedures Procedure Date / Time Performed Performing Clinician Source MRI, finger(s), w/o contrast 2023-10-11 00:00:00 [facility] XR, finger(s), 2 or more view 2023-10-05 00:00:00 [facility] MRI, hand, w/o contrast 2023-10-05 00:00:00 [facility] XR, foot, 3 or more view 2023-09-20 00:00:00 [facility] XR, hand, 3 or more view 2023-09-14 00:00:00 [facility] XR, shoulder, 2 or more view 2023-09-14 00:00:00 [facility] MRI, shoulder, w/o contrast 2023-09-14 00:00:00 [facility] Primary Repair of Extensor Tendon of Lower Limb 2023-02-14 00:00:00 [facility] XR, foot, 3 or more view 2022-10-26 00:00:00 [facility] MRI, foot, w/o contrast 2022-10-26 00:00:00 [facility] ASSIGNMENT OF BENEFITS 2021-05-24 21:23:15 Garett slater Unassigned, [facility] CONSENT/REFUSAL FOR DIAGNOSIS AND TREATMENT 2021-05-24 21:23:02 Doctor Unassigned, [facility] MR LUMBAR SPINE WO CONTRAST 2020-03-05 14:50:00 [facility] XR CERVICAL SPINE 2 VW 2020-02-03 21:30:42 Gerald [facility] ASSIGNMENT OF BENEFITS 2020-02-03 21:06:31 Garett slater Unassigned, [facility] Colonoscopy 2018 00:00:00 [facility] Carpal Tunnel Surgery [facility] Plan of Care Planned Activity Planned Date Details Comments Source Instructions [facility] Encounters Start Date/Time End Date/Time Encounter Type Admission Type Attending [facility] Care Facility Care Department Encounter ID Source 2023-11-07 00:00:00 2023-11-07 00:00:00 Outpatient [facility] [id number] [facility] 2023-11-07 00:00:00 2023-11-07 00:00:00 Leo Levy MD: [address] [place] [address] , Ph. [phone] [facility] [place] [facility] [place] - [facility] [id number] [facility] 2023-10-11 15:33:00 2023-10-11 15:33:00 Outpatient Leo Shepherd [facility] [id number] [facility] 2023-10-05 00:00:00 2023-10-05 00:00:00 Leo Levy MD: [address] [place] [address] , Ph. [phone] [facility] [place] [facility] [place] - [facility] [id number] [facility] 2023-09-30 00:00:2023-09-30 00:00:00 Outpatient [facility] H[place] AO AO [id number] [facility] 2023-09-20 06:50:00 2023-09-20 06:50:00 Outpatient Darrius Ramos [facility] [id number] [facility] 2023-09-20 00:00:00 2023-09-20 00:00:00 Outpatient [facility] Harsh AO AO [id number] [facility] 2023-09-20 00:00:00 2023-09-20 00:00:00 Darrius Vela MD: [address] [place] [address] , Ph. [phone] [facility] [place] [facility] [place] [facility] [id number] [facility] 2023-09-14 00:00:00 2023-09-14 00:00:00 Outpatient [facility] H[place] AO AO [id number] [facility] 2023-09-14 00:00:00 2023-09-14 00:00:00 Leo Levy MD: [address] [place] [address] , Ph. [phone] [facility] [place] [facility] [place] [facility] [address] [id number] [facility] 2023-09-13 00:00:00 2023-09-13 00:00:00 Outpatient [facility] Harsh AO AO [id number] [facility] 2023-09-11 00:00:00 2023-09-11 00:00:00 Outpatient [facility]hof Harsh AO AO [id number] [facility] 2023-09-08 00:00:00 2023-09-08 00:00:00 Outpatient FOG_Adam Fitch [facility] A[facility] [id number] [facility] 2023-08-09 00:00:00 2023-08-09 00:00:00 Outpatient FOG_Adam Little [facility] AOS[facility] [id number] [facility] 2023-08-04 00:00:00 2023-08-04 00:00:00 Outpatient [facility]OG_Adam Little [facility] AOSM [id number] [facility] 2023-06-30 00:00:00 2023-06-30 00:00:00 Outpatient FOG_Adam Little [facility] AOSM [id number] [facility] 2023-06-12 00:00:00 2023-06-12 00:00:00 Outpatient FOG_Adam Little [facility] AOSM [id number] [facility] 2023-06-05 00:00:00 2023-06-05 00:00:00 Telephone [facility] [id number] [facility] 2023-03-10 00:00:00 2023-03-10 00:00:00 Outpatient FOG_Adam Fitch AOS[facility] AOSM [id number] [facility] 2023-03-01 00:00:00 2023-03-01 00:00:00 Outpatient FOG_Adam Fitch [facility] AOSM [id number] [facility] 2023-02-22 00:00:00 2023-02-22 00:00:00 Outpatient FOG_Adam Fitch [facility] AOSM [id number] [facility] 2023-02-22 00:00:00 2023-02-22 00:00:00 Outpatient FOG_Adam Fitch AO AO [id number] [facility] 2023-02-22 00:00:00 2023-02-22 00:00:00 Domingo Myers MD: [address] [place] [phone] , Ph. [phone] [place] [facility] [place] [facility] [id number] [facility] 2023-02-14 07:26:00 2023-02-14 07:26:00 Outpatient Domingo Mukherjee [facility] [id number] [facility] 2023-02-14 00:00:00 2023-02-14 00:00:00 Domingo Myers MD: [address] [place] [phone] , Ph. [phone] [place] [facility] [place] [facility] [id number] [facility] 2023-02-13 00:00:00 2023-02-13 00:00:00 Outpatient FOG_Adam Fitch AO AO [id number] [facility] 2023-02-13 00:00:00 2023-02-13 00:00:00 Outpatient FOG_Adam Fitch AO AO [id number] [facility] 2023-02-12 00:00:00 2023-02-12 00:00:00 Outpatient FOG_Adam Fitch AO AO [id number] [facility] 2023-01-25 00:00:00 2023-01-25 00:00:00 Outpatient FOG_Adam Fitch AO AO [id number] [facility] 2023-01-25 00:00:00 2023-01-25 00:00:00 Domingo Myers MD: [address] [place] [phone] , Ph. [phone] [facility] [place] [facility] [place] [facility] [id number] [facility] 2022-12-30 06:45:00 2022-12-30 06:45:00 Outpatient Domingo Mukherjee [facility] [id number] [facility] 2022-10-31 00:00:00 2022-10-31 00:00:00 Outpatient FOG_Adam Fitch [facility] [id number] [facility] [facility] 2022-10-31 00:00:00 2022-10-31 00:00:00 Outpatient FOG_Adam Fitch AOSM AOSM [id number] [facility] 2022-10-28 00:00:00 2022-10-28 00:00:00 Outpatient FOG_Loncari Maria A AOSM AOSM [id number] [facility] 2022-10-26 00:00:00 2022-10-26 00:00:00 Outpatient FOG_Loncari Maria A AOSM AOSM [id number] [facility] 2022-10-26 00:00:00 2022-10-26 00:00:00 Domingo Myers MD: [id number] [place] [address] , Ph. [phone] [place] [place] [facility] [place] - [facility] [id number] [facility] 2022-10-25 00:00:00 2022-10-25 00:00:00 Outpatient FOG_Loncari Maria A AOSM AOSM [id number] [facility] 2022-10-18 00:00:00 2022-10-18 00:00:00 Outpatient FOG_Loncari Maria A AOSM AOSM [id number] [facility] 2021-05-24 16:23:19 2021-05-25 08:01:38 Office Visit Luis Miguel Rodriguez [facility] 1.84.114 350.1.13.10 4.2.7.2.686 [id number] [facility] 2021-05-24 16:20:00 2021-05-24 16:20:00 Outpatient LUIS MIGUEL HUFFMAN [facility] [id number] [facility] 2021-05-24 00:00:00 2021-05-24 00:00:00 Orders Only Doctor Unassigned, [place] [facility] 1.840114 350.1.13.10 4.2.7.2.686 [id number] [facility] 2020-03-05 08:56:55 2020-03-05 23:59:00 Outpatient LUIS MIGUEL HUFFMAN [facility] [id number] [facility] 2020-03-05 08:56:00 2020-03-05 23:59:00 Hospital Encounter Luis Miguel Rodriguez [facility] 1.84.114 350.1.13.10 4.2.7.2.686 [id number] [facility] 2020-03-05 00:00:00 2020-03-05 00:00:00 Letter (Out) Doctor Unassigned, [place] [facility] 1..114 350.1.13.10 4.2.7.2.686 [id number] [facility] 2020-02-03 16:09:21 2020-02-03 23:59:00 Outpatient LUIS MIGUEL HUFFMAN [facility] [id number] [facility] 2020-02-03 16:09:00 2020-02-03 23:59:00 Hospital Encounter Luis Miguel Rodriguez [facility] 1.840.114 350.1.13.10 4.2.7.2.686 [id number] [facility] 2020-02-03 15:01:47 2020-02-03 16:21:51 Office Visit Luis Miguel Rodriguez [facility] Luis Littlejohn [facility] 1..840.114 350.1.13.10 4.2.7.2.686 [id number] [facility] 2020-02-03 00:00:00 2020-02-03 00:00:00 Orders Only Doctor Unassigned, [place] [facility] 1..840.114 350.1.13.10 4.2.7.2.686 [id number] [facility] Results Test Description Test Time Test Comments Results Result Comments Source - MRI UPPER EX W/O CONT RT 2023-09 07:14:0 0 [facility] : 1970 Sex: M Patient Name: JOSY EATON Unit No: [id number] EXAMS: CPT CODE: [id number] MRI UPPER EX W/[place] [address] MRI OF THE RIGHT THUMB DIAGNOSIS: There is a sprain of the ulnar collateral ligament the metacarpal phalangeal joint with partial-thickness intrasubstance tearing without retraction and a partial tear of the distal attachment of the radial collateral ligament without retraction. Subcutaneous edema is present diffusely in the thumb and there is also a sprain of the extensor tendon without tearing. COMMENT: Scans were performed in the sagittal, coronal and axial planes utilizing T1-weighting and spin density with fat saturation. No bony or hyaline cartilage lesions are seen. Tendon and ligament abnormalities are as described. No muscle tears are seen. No masses or fluid collections are identified. 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 at 0714 Reported and signed by: Mitch Perez MD CC: Leo Levy MD Technologist: Chacorta Perez [facility]MRI Transcribed D/ (713) Radha [facility] NAME: JOSY EATON [address] [facility] PHYS: Leo Stauffer MD : 1970 AGE: 53 SEX: M [place], [place] [address] LOC: Y.MRI PHONE #: [phone] EXAM DATE: 10/11/2023 STATUS: DEP CLI FAX #: [phone] RAD #: D/C DT PAGE 1 Signed Report Patient Name: JOSY EATON Unit No: [id number] EXAMS: CPT CODE: [id number] MRI UPPER EX W/[place] [address] (Continued) Orig Print D/T: S: 10/12/2023 (716) [facility] NAME: JOSY EATON [address] [facility] PHYS: Leo Stauffer MD : 1970 AGE: 53 SEX: M [place], [place] [address] LOC: Y.MRI PHONE #: [phone] EXAM DATE: 10/11/2023 STATUS: DEP CLI FAX #: [phone] RAD #: D/C DT PAGE 2 Signed Report - MRI UP JNT W/O CONT RT 2023-09 08:11:0 0 [facility] 1970 Sex: M Patient Name: JOSY EATON Unit No: [id number] EXAMS: CPT CODE: [id number] MRI [place] JNT W/[place] [address] MRI OF THE RIGHT SHOULDER DIAGNOSIS: 1. Partial-thickness longitudinal split tear of the superior subscapularis tendon without tendon retraction or muscular atrophy. Mild medial subluxation of the proximal biceps tendon is noted with tendinosis. 2. Partial tear of the supraspinatus tendon insertion without tendon retraction or muscular atrophy. 3. Infraspinatus tendinosis without evidence for tear, retraction or muscular atrophy. COMMENT: COMPARISON: No prior exams available. Scans were performed in the paracoronal, parasagittal and axial planes utilizing T1 , spin density with fat saturation and T2-weighting with and without fat saturation. The rotator cuff is as described. The acromion is horizontal with AC joint degenerative change. There is no evidence for a labral tear. Small joint and bursal effusions are present. at 0811 Reported and signed by: Mitch Perez MD CC: Technologist: JOHN LIEBERMAN RT(R) Transcribed D/ (810) JamarRTimoJCL [facility] NAME: JOSY EATON [address] [facility] PHYS: Darrius Fregoso MD : 1970 AGE: 53 SEX: M [place], [place] [address] LOC: Y.MRI PHONE #: [phone] EXAM DATE: 09/20/2023 STATUS: REG CLI FAX #: [phone] RAD #: D/C DT PAGE 1 Signed Report Patient Name: JOSY EATON Unit No: [id number] EXAMS: CPT CODE: [id number] MRI [place] JNT W/[place] [address] (Continued) Orig Print D/T: S: 09/20/2023 (0814) [facility] NAME: JOSY EATON [address] [facility] PHYS: Darrius Fregoso MD : 1970 AGE: 53 SEX: M [place], [place] [address] LOC: Y.MRI PHONE #: [phone] EXAM DATE: 09/20/2023 STATUS: REG CLI FAX #: [phone] RAD #: D/C DT PAGE 2 Signed Report MRI BRAIN WO 2023-07 15:31:3 6 [facility] 1970 Sex: M CLINICAL INDICATION: G44.301Post-traumatic headache, unspecified, nrtrphwnudpP55.8F0JBrykeijsu n without loss of consciousness, initial oygvzqncaW96.90XAUnspecified injury of head, initial encounterMODALITY: MRITECHNIQUE: Multiplanar SE, FSE and inversion recovery pulse sequences of the brain were performed without contrast enhancement. Diffusion weighted imaging is utilized.IMPRESSION:There are no intracranial abnormalities.FINDINGS:BROOKE RISON: noneThere are no significant intracranial white matter lesions.There are no acute infarcts, ischemic changes or hemorrhages. There is no acute restriction on diffusion sequences.There are no intracranial or extra-axial masses. There is no hydrocephalous.Sella and parasellar structures are normal. Central skull base is intact. The craniocervical junction is intact. No mass or Chiari malformation.The brainstem, midbrain and cerebellum are normal. Bilateral internal auditory canals are normal and symmetric.Normal flow voids are seen intracranially in carotid and vertebrobasilar arteries. The calvarium is intact. Extracranial soft tissues are unremarkable. - MRI LOW EXT W/O CONT LT 2022-12 08:47:0 0 [facility] 1970 Sex: M Patient Name: JOSY EATON Unit No: [id number] EXAMS: CPT CODE: [id number] MRI L[place] EXT W/[place] [address] MRI OF THE LEFT FOOT DIAGNOSIS: There is a metallic foreign body which largely obscures the 1st metatarsophalangeal joint. No definite abnormalities are seen. COMMENT: Scans were performed in the sagittal, axial and coronal planes utilizing T1, T2 and inversion recovery images. No bony abnormalities are seen. No tendon tears are identified. There is no evidence for ligamentous sprain or tear. No muscle strains or tears are seen. No masses are identified. at 0847 Reported and signed by: Mitch Perez MD CC: Domingo Myers MD Technologist: Malini Yarbrough(R) Transcribed D/ (0847) ManasaJCL [facility] NAME: JOSY EATON [address] [facility] PHYS: Domingo Grajeda MD : 1970 AGE: 52 SEX: M [place], [place] [address] LOC: Y.MRI PHONE #: [phone] EXAM DATE: 12/30/2022 STATUS: REG CLI FAX #: [phone] RAD #: D/C DT PAGE 1 Signed Report Patient Name: JOSY EATON Unit No: [id number] EXAMS: CPT CODE: [id number] MRI [place] EXT W/[place] [address] (Continued) Orig Print D/T: S: 12/30/2022 (0851) [facility] NAME: JOSY EATON [address] [place] [facility] PHYS: Domingo Grajeda MD : 1970 AGE: 52 SEX: [place] [address] LOC: Y.MRI PHONE #: [phone] EXAM DATE: 12/30/2022 STATUS: REG CLI FAX #: [phone] RAD #: D/C DT PAGE 2 Signed Report - MRI LW JNT W/O CONT LT 2022-12 08:41:0 0 [facility] 1970 Sex: M Patient Name: JOSY EATON Unit No: [id number] EXAMS: CPT CODE: [id number] MRI JNT W/[place] [address] MRI OF THE LEFT ANKLE DIAGNOSIS: 1. Partial-thickness longitudinal split tear of the tibialis anterior tendon distally with tenosynovitis. No tendon retraction is seen. 2. Partial-thickness longitudinal split tear of the peroneus brevis tendon with mild tenosynovitis. No tendon subluxation or retraction is seen. 3. Partial-thickness longitudinal split tear of the distal posterior tibial tendon with a small tendon sheath effusion which may represent tenosynovitis. There is no evidence for tendon retraction. 4. Plantar fasciitis with thickening of the plantar fascial insertion medially and increased T2-weighted signal. Surrounding edema is present. No tear is identified. COMMENT: COMPARISON: No prior exams available. Scans were performed in the sagittal, axial and coronal planes utilizing T1, spin density with and without fat saturation and inversion recovery images. No focal bony or hyaline cartilage lesions are seen. Effusion and/or synovitis is seen in the tibiotalar and posterior subtalar joints. Tendon abnormalities are as right. There is no evidence for a ligamentous sprain or tear. at 0841 Reported and signed by: Mitch Perez MD CC: Domingo Myers MD Technologist: Malini Yarbrough(R) Transcribed D/ (0841) TwliaL [facility] NAME: JOSY EATON [address] [facility] PHYS: Domingo Grajeda MD : 1970 AGE: 52 SEX: M [place] [address] LOC: Y.MRI PHONE #: [phone] EXAM DATE: 12/30/2022 STATUS: REG CLI FAX #: [phone] RAD #: D/C DT PAGE 1 Signed Report Patient Name: JOSY EATON Unit No: [id number] EXAMS: CPT CODE: [id number] MRI LW JNT W/[place] [address] (Continued) Orig Print D/T: S: 12/30/2022 (0844) [facility] NAME: JOSY EATON [address] [place] [address] PHYS: Domingo Grajeda MD : 1970 AGE: 52 SEX: M [place] [address] LOC: Y.MRI PHONE #: [phone] EXAM DATE: 12/30/2022 STATUS: REG CLI FAX #: [phone] RAD #: D/C DT PAGE 2 Signed Report MR LUMBAR SPINE WO CONTRAST 2020-02 15:16:1 2 HISTORY: Left leg numbness since December. No history of trauma. TECHNIQUE: Sagittal T2 FRFSE, T1, STIR and axial T2 FRFSE T1 studies oflumbar spines are obtained. Additional coronal T2 FRFSE study is alsoobtained. FINDINGS: No acute compression fracture or aggressive lesions of the bonesdetected. Spinal canal appears to be of adequate size and normalconus/cauda equina are found at the level of T12. Visualizedretroperitoneum is unremarkable for aortic aneurysm or enlarged lymph nodesor hydronephrosis. T11-T12, T12-L1, L1-L2, L2-L3, L3-L4, L4-L5, L5-S1: Prominent osteophytesnoted along the ventral and right lateral vertebral margins at T11-T12.Smaller osteophytes are present at T12-L1. Shallow Schmorl's node in thelower plate of T11 could be developmental. All discs maintain normal height and showed signs of minimal desiccationwithout significant degeneration. No bulging of the disc or disc herniationinto the spinal canal detected at any of the lumbar levels. No significantforaminal stenosis. Facet arthritis with thickened ligaments noted at all lumbar levels withminimal fluid in facet joints at L2-L3, L3-L4, L4-L5 levels. Subcentimeter lesion in S2 segment is consistent with a small lipoma. CONCLUSIONS: No lumbar disc herniation detected. No spinal or foraminalstenosis detected at any other lumbar levels. [facility], Radiant Results Inft User - 03/05/2020 10:17 AM CDTHISTORY: Left leg numbness since December. No history of trauma.TECHNIQUE: Sagittal T2 FRFSE, T1, STIR and axial T2 FRFSE T1 studies oflumbar spines are obtained. Additional coronal T2 FRFSE study is alsoobtained.FINDINGS: No acute compression fracture or aggressive lesions of the bonesdetected. Spinal canal appears to be of adequate size and normalconus/cauda equina are found at the level of T12. Visualizedretroperitoneum is unremarkable for aortic aneurysm or enlarged lymph nodesor hydronephrosis. T11-T12, T12-L1, L1-L2, L2-L3, L3-L4, L4-L5, L5-S1: Prominent osteophytesnoted along the ventral and right lateral vertebral margins at T11-T12.Smaller osteophytes are present at T12-L1. Shallow Schmorl's node in thelower plate of T11 could be developmental.All discs maintain normal height and showed signs of minimal desiccationwithout significant degeneration. No bulging of the disc or disc herniationinto the spinal canal detected at any of the lumbar levels. No significantforaminal stenosis.Facet arthritis with thickened ligaments noted at all lumbar levels withminimal fluid in facet joints at L2-L3, L3-L4, L4-L5 levels.Subcentimeter lesion in S2 segment is consistent with a small lipoma.CONCLUSIONS: No lumbar disc herniation detected. No spinal or foraminalstenosis detected at any other lumbar levels. [facility] XR CERVICAL SPINE 2 VW 2020-01 21:41:0 5 1. ?No acute osseous findings are seen.2. ?Mild degenerative changes of the cervical spine.HISTORY:cervical spondylosis TECHNIQUE: Frontal and lateral views of the cervical spine were obtained. COMPARISON:None. FINDINGS: There is normal cervical lordosis and sagittal alignment. The vertebralbody heights are preserved. The craniocervical junction is unremarkable. Multilevel degenerative changes are noted in the form of disc spacenarrowing, anterior osteophytes and facet arthropathy. These findings areof mild severity. [facility], Radiant Results Inft User - 02/03/2020 4:42 PM CDTHISTORY:cervical spondylosis TECHNIQUE: Frontal and lateral views of the cervical spine were obtained. COMPARISON:None.FINDINGS:The re is normal cervical lordosis and sagittal alignment. The vertebralbody heights are preserved. The craniocervical junction is unremarkable.Multilevel degenerative changes are noted in the form of disc spacenarrowing, anterior osteophytes and facet arthropathy. These findings areof mild severity.IMPRESSION1. No acute osseous findings are seen.2. Mild degenerative changes of the cervical spine. [facility] Notes Date/Time Note Provider Source 2023-06-05 15:12:32 L+DuqogEAjZk55hfGbht sN2/+mj3FKn/u94u0E6+yR Ta4sfgq8J6/URx7/7RgRsi7052-55-95I32:12:32F ormatting of this note might be different from the original.Patient called yesterday evening, severe pain involving the right hip area. Had been walking a lot on recent vacation. Recent foot surgery. I recommended he talk to pain management about the possibility of piriformis syndrome. We can get EMG/xray if needed. He tried to get outside provider, but they would not accept his insurance. Will make in-house referral to see if the procedure could be tried here at [facility]. 18157-7Ftzipthbq encounter AqhcNG0250-48-11R33:18:56Telephone encounter NoteTXT1.2.840.672288.1.13.104.2.7.2.70075 9|[id number] for patient rsqd11218-0CkysKXTZAGWJ[address] Ch[id number] HIWKFLDQRAOQPEGQ9690-20-02F35:18:561.2.840 .341119.1.72.3.15|1.2.840.088751.1.13.104. 2.7.2.727879_[id number] [facility] 2023-02-15 07:33:00 [id number]+e wQxCWlKijLBZTh4gBmeJJ0 WGHwLftop9snpXc8AnDellroT7hXOuYB035056-60- 03T07:33:317158-3374 [facility] [place] [address] PATIENT NAME: JOSY EATON ADMIT DATE: 02/14/23ACCOUNT NO: [id number] ROOM NO: AGE: 52 REPORT TYPE: OPERATIVE REPORT SEX: M ADMITTING PHYSICIAN: ATTENDING PHYSICIAN:Domingo Myers MD OPERATION DATE: 02/14/2023 PREOPERATIVE DIAGNOSES:1. Chronic anterior tibial tendinosis, left ankle and foot.2. Spontaneous rupture of the anterior tibial tendon, left foot and ankle. POSTOPERATIVE DIAGNOSES:1. Chronic anterior tibial tendinosis, left ankle and foot.2. Spontaneous rupture of the anterior tibial tendon, left foot and ankle. PROCEDURES PERFORMED: Secondary debridement and repair of the anterior tibialtendon, left foot and ankle. SURGEON: Domingo Myers M.D. [facility] [employer] CHIEF: ANESTHESIA: LMA and local INDICATIONS: Mr. Eaton is a 52-year-old male with a long history of anteriorankle pain. He had undergone conservative treatment with immobilization in aboot, which temporarily relieved his symptoms; however, he has ongoing symptomswith increased activities and removal of the boot. MRI showed evidence ofdegenerative tearing of the anterior tibial tendon. We discussed the findingswith the patient. We discussed the options of treatment. We discussed surgerywith him. We discussed risks and benefits of surgery with the patient and heunderstood the risks and benefits and desired to go forward. DESCRIPTION OF PROCEDURE: After informed consent was obtained, the patient wasbrought back to main operating room and underwent a laryngeal mask anesthetic.Once the anesthesia was assured, a thigh tourniquet was applied and preset at250 mmHg. The patient received 2 grams of cefazolin and the left lowerextremity was then prepped and draped free. The foot, ankle, and leg were then exsanguinated with an Esmarch bandage andtourniquet was inflated to 250 mmHg. The skin was incised over the anteriortibial tendon and dissection was carried down to expose the tendon. We releaseda portion of the inferior retinaculum as well as the tendon sheath overlying theanterior tibial tendon. We then identified it more proximally, which was morenormal, but distally we found that there was degenerative longitudinal splittearing of the tendon. In addition, there was tendinosis present. Theattachment remained essentially intact, though we did debride quite a bit of PATIENT NAME: JOSY EATON abnormal tendon on the central and distal portion of the anterior tibial tendon. We then also identified, curetted off an area of the medial cuneiform where wewould reinforce the attachment. We did place an Arthrex 2.5 suture anchor intothe cuneiform bone. We then completed our debridement of the anterior tibialtendon. We then reattached portions of the anterior tibial tendon to the medialcuneiform with our suture anchor. We then tubularized the remaining portion ofthe tendon with a running suture of 2-0 PDS. Once this was done, we irrigatedout the wound. We repaired the soft tissues overlying the tendon with suturesof 3-0 Monocryl. We did leave the inferior portion of the retinaculum opened toavoid irritation of the tendon. We then reapproximated the skin with 3-0Monocryl and finally closed the skin with 4-0 Prolene. We performed a localinfiltration with ankle block with a total of 20 mL of 0.5% bupivacaine plain.A sterile dry compressive dressing was applied. The tourniquet was deflatedafter approximately 40 minutes and the toes pinked up nicely. A well-paddedposterior and U splint with the ankle in a neutral position was applied. Thepatient was awakened, extubated, and taken to the post-anesthesia care unit instable condition. He tolerated the procedure well with no apparentcomplications. Estimated blood loss was less than 25 mL. Dictated By: Domingo Myers MD Date Dictated: 02/15/2023 07:33:22Date Transcribed: 02/15/2023 09:00:26DL/NAFJob #: [id number] ID: [id number] and Edited by Domingo Myers MD On 02/16/23 2:51:25 PM at 0253 PATIENT NAME: JOSY EATON vgjpxi7604-95-49K88:00:00Y.VVZ72713984-654 4AVAvailable for patient kpmdZCRLINQHCRLHBQ9184-26-18U24:54:15 [facility] 2023-01-25 16:25:00 [id number] 2y3w64Aht82lFH1mor4IL4 xlxUaIkse1GpJfIem3/b0zjaFzNw/GgJJm1656-67- 12T16:25:376253-5366 [facility] [place] [address] PATIENT NAME: JOSY EATON ADMIT DATE: ACCOUNT NO: [id number] ROOM NO: AGE: 52 REPORT TYPE: ELECTROCARDIOGRAM SEX: M ADMITTING PHYSICIAN: ATTENDING PHYSICIAN:Domingo Myers MD Order:[id number] Reason : PRE OP CLEARANCE AGE>50Y Test Date/Time Stamp:MonJan 25 2023 16:25:03Blood Pressure : / mmHGVent. Rate : 073 BPM Atrial Rate : 073 BPM P-R Int : 172 ms QRS Dur : 110 ms QT Int : 390 ms P-R-T Axes : 035 007 017 degrees QTc Int : 429 ms Normal sinus rhythmMinimal voltage criteria for LVH, may be normal variantBorderline ECGNo previous ECGs availableConfirmed by JULIA ANTHONY MD ([id number]) on 01/26/2023 9:18:49 PM Referred By: Domingo Myers Confirmed by:JULIA ANTHONY MD PATIENT NAME: JOSY EATON .[id number] for patient nmjdPKBNIQPTORPUQA5385-96-44F06:19:07 [facility]"
[2024-02-26 02:06] LABS: PT Prothrombin Time 10.7 SECONDS (9.5-12.5); Protime INR 0.97
[2024-02-26 02:14] LABS: Absolute Eosinophils 0.3 K/uL (0-0.5); Absolute Monocytes 0.6 K/uL (0.1-1.3); Absolute Neutrophil 3.1 K/uL (1.8-8.0); Basophils % 0.8 % (0-1.3); Eosinophils % 4.8 % (0-4.4); Hematocrit 43.1 % (39.6-49.0); Hemoglobin 14.7 g/dL (13.6-17.9); Lymphocytes % 33.4 % (15.3-44.8); MCH 36.5 pg (27.0-35.0); MCHC 34.1 g/dL (32.0-36.0); MPV 7.6 fL (7.6-11.3); Monocytes % 9.7 % (3.3-12.3); Neutrophils % 51.3 % (41.7-73.7); Platelets 227 thou/uL (152-406); RBC Red Blood Cell Count 4.03 M/uL (4.33-5.43)
[2024-02-26 02:18] LABS: ALT/SGPT 141 U/L (16-61); AST/SGOT 101 U/L (15-37); Albumin 3.9 g/dL (3.4-5.0); Albumin/Globulin Ratio 1.1 (1.1-1.8); Alkaline Phosphatase 94 U/L (45-117); Anion Gap 9.9 mEq/L (5.0-15.0); BUN Blood Urea Nitrogen 13 mg/dL (7-18); Bicarbonate 26 mEq/L (21-32); Bilirubin Total 0.6 mg/dL (0.2-1.0); Globulin 3.5 g/dL (2.3-3.5); Glomerular Filtration Rate 102 ml/min (=/>90); Glucose Level 102 mg/dL (74-106); Magnesium 2.3 mg/dL (1.6-2.4); NT PRO-BNP 60 pg/mL (<125); Potassium 3.9 mEq/L (3.5-5.1); Protein, Total 7.4 g/dL (6.4-8.2); Sodium Level 137 mEq/L (136-145); Troponin High Sensitivity 5.4 pg/mL (<58.9)
[2024-02-26 02:20] LABS: Bilirubin Direct < 0.2 mg/dL (0-0.2); Bilirubin Indirect, Calculated 0.4 mg/dL (0.2-0.8)
[2024-02-26] MEDS ORDERED: DIPHENHYDRAMINE 50 MG/ML VIAL ONE (02:26)
[2024-02-26] MEDS ORDERED: KETOROLAC 30 MG/ML INJ ONE (02:26)
[2024-02-26] MEDS ORDERED: ONDANSETRON 4 MG/2 ML VIAL ONE (02:26)
[2024-02-26] MEDS ORDERED: MORPHINE 2 MG/ML SYR ONE (02:27)
[2024-02-26] MEDS ORDERED: METOCLOPRAMIDE 10 MG/2mL INJ ONE (02:27)
[2024-02-26] MEDS ORDERED: MORPHINE 4 MG/ML SYR ONE (02:27)
[2024-02-26] MEDS ORDERED: NA CHLORIDE 0.9% 1,000 ML ONE (02:28)
[2024-02-26 02:37] LABS: C-Reactive Protein 10.6 mg/L (<3.00)
[2024-02-26 02:40] LABS: Thyroid Stimulating Hormone 3.75 uIU/mL (0.358-3.740)
--- NOTE | 2024-02-26 06:28 | EDPHYS ---
Physician Documentation [facility] Name: Jose Enrique Eaton III Age: 54 yrs Sex: Male : 1970 Arrival Date: 02/26/2024 Time: 01:23 Bed 20 Private MD: ED Physician Azam Bella HPI: 02/25 01:27 This 54 yrs old Male presents to ER via Unassigned with complaints of Chest sp4 Pain, Shortness Of Breath. 04:16 54-year-old male presents with acute onset with right-sided to midsternal chest pain sp4 with radiation into the right neck. Patient reports also associated right earache and history of right-sided sciatica. Patient takes as needed Vicodin and Advil and Robaxin at home. No history of heart disease. . Historical: - Allergies: 01:29 No Known Allergies; jb4 - PMHx: :29 None; jb4 - PSHx: 01:29 Left foot; jb4 - Immunization history:: Adult Immunizations up to date. - Infectious Disease History:: Denies. - Social history:: Smoking status: Patient denies any tobacco usage or history of. - Family history:: not pertinent. ROS: 04:16 Constitutional: Negative for fever, chills, and weight loss, positive midsternal chest sp4 pain with radiation into the right side of the neck. 04:16 All other systems are negative, Exam: 04:16 Constitutional: This is a well developed, well nourished patient who is awake, alert, sp4 and in no acute distress. Head/Face: Normocephalic, atraumatic. Eyes: Pupils equal round and reactive to light, extra-ocular motions intact. Lids and lashes normal. Conjunctiva and sclera are not injected. Cornea within normal limits. Periorbital areas with no swelling, redness, or edema. ENT: Nares patent. No nasal discharge, no septal abnormalities noted. Tympanic membranes are normal and external auditory canals are clear. Oropharynx with no redness, swelling, or masses, exudates, or evidence of obstruction, uvula midline. Mucous membranes moist. Neck: Trachea midline, no thyromegaly or masses palpated, and no cervical lymphadenopathy. Supple, full range of motion without nuchal rigidity, or vertebral point tenderness. Chest/axilla: Normal chest wall appearance and motion. Nontender with no deformity. No lesions are appreciated. Cardiovascular: Regular rate and rhythm with a normal S1 and S2. No gallops, murmurs, or rubs. Normal PMI, no JVD. No pulse deficits. Respiratory: Lungs have equal breath sounds bilaterally, clear to auscultation and percussion. No rales, rhonchi or wheezes noted. No increased work of breathing, no retractions or nasal flaring. Abdomen/GI: Soft, with normal bowel sounds. No distension or tympany. No guarding or rebound. No evidence of tenderness throughout. Back: No spinal tenderness. No costovertebral tenderness. Skin: Warm, dry with normal turgor. Normal color with no rashes, no lesions, and no evidence of cellulitis. MS/ Extremity: Pulses equal, no cyanosis. Neurovascular intact. Full, normal range of motion. Neuro: Awake and alert, GCS 15, oriented to person, place, time, and situation. Cranial nerves II-XII grossly intact. Motor strength 5/5 in all extremities. Sensory grossly intact. Psych: Awake, alert, with orientation to person, place and time. Behavior, mood, and affect are within normal limits 04:16 ECG was reviewed by the Attending Physician. EKG at 0 137 normal sinus rhythm at the rate of 93 normal EKG. Vital Signs: 01:27 BP 139 / 105; Pulse 96; Resp 16; Temp 96.9(TE); Pulse Ox 100% on R/A; Weight 90.72 kg jb4 (R); Height 5 ft. 10 in. (R); Pain 8/10; 02:00 BP 149 / 94; Pulse 87; Resp 17 S; Pulse Ox 98% on R/A; ha1 03:00 BP 131 / 65; Pulse 62; Resp 17 S; Pulse Ox 96% on R/A; ha1 03:30 BP 132 / 93; Pulse 84; Resp 17 S; Pulse Ox 99% on R/A; ha1 04:03 BP 132 / 94; Pulse 82; Resp 16 S; Temp 97.9; Pulse Ox 100% on R/A; ha1 05:00 BP 116 / 81; Pulse 86; Resp 16; Pulse Ox 98% on R/A; pf1 01:27 Body Mass Index 28.70 (90.72 kg, 177.8 cm) jb4 01:27 Pain Scale: Adult jb4 NIH Stroke Scale Scores: 04:16 NIHSS Score: 0 sp4 [place] Coma Score: 04:16 Eye Response: spontaneous(4). Motor Response: obeys commands(6). Verbal Response: sp4 oriented(5). Total: 15. MDM: 01:27 Patient medically screened. sp4 03:52 ED course: EXAM DESCRIPTION: Chest Single View CLINICAL HISTORY: CHEST PAIN COMPARISON: sp4 None TECHNIQUE: Single AP view of the chest. FINDINGS: Lung volumes diminished. Mild bronchovascular crowding. Cardiac silhouette is normal in size. No pneumothorax. No large pleural effusion. No focal consolidation. No acute bony finding. IMPRESSION: 1. No acute cardiopulmonary findings. 2. Low lung volumes with associated hypoventilatory changes. . 04:08 ED course: IMPRESSION: CT aortic protocol CTA CHEST: 1. No evidence of pulmonary sp4 embolism, aortic aneurysm or aortic dissection. 2. No evidence of acute intrathoracic disease. CTA ABDOMEN AND PELVIS: 1. No evidence of acute intra-abdominal or intrapelvic pathology. 2. Hepatomegaly with diffusely decreased attenuation of the liver commonly due to hepatic steatosis. 3. Bilateral nonobstructing renal calculi slightly greater in the left kidney. 4. Small bilateral fat-containing inguinal hernias. 5. Normal CTA of the abdomen and pelvis. There is no evidence of abdominal aortic aneurysm or dissection. Electronically signed by: Spring Rao DO 02/26/2024 03:53 AM. 06:27 HEART Score: History: Moderately Suspicious (1), ECG: Normal (0), Age: > 45 and < 65 sp4 years (1), Risk Factors: No Risk Factors Known (0), Troponin: < or = 1 x Normal Limit (0), Total Score = 1. Data reviewed: vital signs, nurses notes, old medical records, lab test result(s), EKG, radiologic studies. ED course: EKG read. 05:27-repeat EKG is normal , normal sinus rhythm at a rate of 82. 02/25 01:27 Order name: Basic Metabolic Panel; Complete Time: 03:52 sp4 02/25 01:27 Order name: CBC with Diff; Complete Time: 03:52 sp4 02/25 01:27 Order name: LFT's; Complete Time: 03:52 02/25 01:27 Order name: Magnesium; Complete Time: 03:52 02/25 01:27 Order name: NT PRO-BNP; Complete Time: 03:52 02/25 01:27 Order name: PT-INR; Complete Time: 03:52 02/25 01:27 Order name: Troponin HS; Complete Time: 03:52 02/25 02:01 Order name: CRP; Complete Time: 03:52 02/25 02:01 Order name: TSH; Complete Time: 03:52 02/25 02:01 Order name: T4 Free; Complete Time: 03:52 02/25 05:15 Order name: Troponin High Sensitivity; Complete Time: 06:23 02/25 01:27 Order name: XRAY Chest (1 view) 02/25 02:00 Order name: CT Aorta for Dissection 02/25 05:15 Order name: EKG; Complete Time: 05:16 02/25 01:27 Order name: Cardiac monitoring; Complete Time: :43 02/25 01:27 Order name: EKG - Nurse/Tech; Complete Time: :43 02/25 01:27 Order name: IV Saline Lock; Complete Time: :02/25 01:27 Order name: Labs collected and sent; Complete Time: :54 02/25 01:27 Order name: O2 Per Protocol; Complete Time: :43 02/25 01:27 Order name: O2 Sat Monitoring; Complete Time: :02/25 05:15 Order name: EKG - Nurse/Tech; Complete Time: 05:44 EC:16 Rate is 93 beats/min. Rhythm is regular, Normal Sinus Rhythm. QRS [place] is Normal. [place] sp4 interval is normal. QRS interval is normal. QT interval is normal. No Q waves. T waves are Normal. No ST changes noted. Clinical impression: Normal ECG. Interpreted by me. Reviewed by me. Administered Medications: 02:20 Drug: NS 0.9% IV 1000 ml IV at 125 ml/hr continuous Route: IV; Rate: 125 ml/hr; Site: ha1 right antecubital; 05:45 Follow up: Response: No adverse reaction; Marked relief of symptoms pf1 02:20 Drug: Ketorolac IVP 15 mg IVP once Route: IVP; Site: right antecubital; ha1 03:00 Follow up: Response: No adverse reaction; Pain is decreased ha1 02:22 Drug: diphenhydrAMINE IVP 25 mg IVP once Route: IVP; Site: right antecubital; ha1 03:20 Follow up: Response: No adverse reaction; Marked relief of symptoms; Pain is decreased pf1 02:24 Drug: metoCLOPramide IVP 10 mg IVP once; over 1 to 2 minutes Route: IVP; Site: right ha1 antecubital; 03:20 Follow up: Response: No adverse reaction; Marked relief of symptoms; Pain is decreased pf1 02:26 Drug: Ondansetron IVP 4 mg IVP once; over 2 minutes Route: IVP; Site: right antecubital;ha1 03:20 Follow up: Response: No adverse reaction; Marked relief of symptoms pf1 02:28 Drug: morphine IVP or IV 6 mg IVP once over 4 mins Route: IVP; Infused Over: 4 mins; ha1 Site: right antecubital; 03:20 Follow up: Response: No adverse reaction; Marked relief of symptoms; Pain is decreased; pf1 RASS: Alert and Calm (0) Disposition Summary: 02/26/24 06:27 Discharge Ordered Notes: Please see Postdoctoral Scientist for additional evaluation Location: Home sp4 Problem: new sp4 Symptoms: have improved sp4 Condition: Stable sp4 Diagnosis - Chest pain, unspecified sp4 - Migraine without aura, not intractable sp4 Followup: sp4 - With: Hugh Aguilar MD - When: 7 - 10 days - Reason: Recheck today's complaints Discharge Instructions: - Discharge Summary Sheet sp4 - Nonspecific Chest Pain, Adult sp4 Forms: - Patient Portal Instructions sp4 NIH Stroke Scale - NIH Stroke Score Date: 02/26/2024 Time: 04:16 Total Score = 0 10. Dysarthria (speech clarity - read or repeat words) - 0(Normal) 11. Extinction and Inattention (visual/tactile/auditory/spatial/personal) - 0(No abnormality) 1a. Level of Consciousness (LOC) - 0(Alert) 1b. Level of Consciousness (LOC) (Month \T\ Age) - 0(Both) 1c. LOC Commands (Open \T\ Closes Eyes/Press Tender Star Signal) - 0(Both) 2. Best Gaze (Lateral Gaze Paresis) - 0(Normal) 3. Visual Field Loss - 0(No visual loss) 4. Facial Palsy - 0(Normal) 5a. Left Arm: Motor (10-second hold) - 0(No drift) 5b. Right Arm: Motor (10-second hold) - 0(No drift) 6a. Left Leg: Motor (5-second hold - always test supine) - 0(No drift) 6b. Right Leg: Motor (5-second hold - always test supine) - 0(No drift) 7. Limb Ataxia (finger/nose \T\ heel/de - test with eyes open) - 0(Absent) 8. Sensory Loss (pinprick arms/legs/face) - 0(Normal) 9. Best Language: Aphasia (description/naming/reading) - 0(No aphasia) Initials: sp4 Signatures: Dispatcher [employer] EDMS Silviano Dominique RN RN jb4 Lorna Reis RN RN ha1 Azam Bella MD MD sp4 Magalys Mcfarland RN pf1 Corrections: (The following items were deleted from the chart) 01: 01:28 BASIC METABOLIC PANEL+C.LAB.BRZ ordered. EDMS EDMS 01:28 CBC+H.LAB.BRZ ordered. EDMS EDMS 01:28 HEPATIC FUNCTION+C.LAB.BRZ ordered. EDMS EDMS 01:28 MAGNESIUM+C.LAB.BRZ ordered. EDMS EDMS 01:28 PROBNP+C.LAB.BRZ ordered. EDMS EDMS 01:28 PROTIME (+INR)+COAG.LAB.BRZ ordered. EDMS EDMS 01:28 Troponin High Sensitivity+C.LAB.BRZ ordered. EDMS EDMS 01:28 Chest Single View+RAD.RAD.BRZ ordered. EDMS EDMS
--- NOTE | 2024-02-26 06:28 | ER ---
Nurse's Notes [facility] Name: Jose Enrique Eaton III Age: 54 yrs Sex: Male : 1970 Arrival Date: 02/26/2024 Time: 01:23 Bed 20 Private MD: Diagnosis: Chest pain, unspecified;Migraine without aura, not intractable Presentation: 02/25 01:27 Chief complaint: Patient states: Around mid-day I started having a pulsing chest pain jb4 on my right upper chest that radiates into my neck. Now It has worsened and is a deep throbbing pain. It hurts when I take a deep breath. Coronavirus screen: At this time, the client does not indicate any symptoms associated with coronavirus-19. Ebola Screen: No symptoms or risks identified at this time. Initial Sepsis Screen: Does the patient meet any 2 criteria? No. Patient's initial sepsis screen is negative. Does the patient have a suspected source of infection? No. Patient's initial sepsis screen is negative. Risk Assessment: Do you want to hurt yourself or someone else? Patient reports no desire to harm self or others. Onset of symptoms was February 26, 2024. Transition of care: patient was not received from another setting of care. 01:27 Method Of Arrival: Ambulatory jb4 01:27 Acuity: HARITHA 2 jb4 Historical: - Allergies: 01:29 No Known Allergies; jb4 - PMHx: 01:29 None; jb4 - PSHx: 01:29 Left foot; jb4 - Immunization history:: Adult Immunizations up to date. - Infectious Disease History:: Denies. - Social history:: Smoking status: Patient denies any tobacco usage or history of. - Family history:: not pertinent. Screenin:44 [facility] ED Fall Risk Assessment (Adult) History of falling in the last 3 months, pf1 including since admission No falls in past 3 months (0 pts) Confusion or Disorientation No (0 pts) Intoxicated or Sedated No (0 pts) Impaired Gait No (0 pts) Mobility Assist Device Used No (0 pt) Altered Elimination No (0 pt) Score/Fall Risk Level 0 - 2 = Low Risk Oriented to surroundings, Maintained a safe environment, Educated pt \T\ family on fall prevention, incl call for assistance when getting out of bed, Assessed \T\ reinforced patient's understanding of fall precautions, Provided non-skid footwear, Hourly rounding (assess needs \T\ fall precautionary measures) done, Used ambulatory aids as needed (educated on \T\ assisted with), Used gait belt as appropriate. Abuse screen: Denies threats or abuse. Nutritional screening: No deficits noted. Tuberculosis screening: No symptoms or risk factors identified. Assessment: 01:30 General: Appears comfortable, Behavior is calm, cooperative. Pain: Complains of pain in ha1 chest Pain radiates to right side of neck Pain currently is 9 out of 10 on a pain scale. Quality of pain is described as aching, throbbing, Pain began suddenly, 4 hours ago. Neuro: Level of Consciousness is awake, alert, obeys commands, Oriented to person, place, time, situation. Neuro: Reports headache in entire. Cardiovascular: Heart tones S1 S2 present Capillary refill < 3 seconds Patient's skin is warm and dry. Rhythm is sinus rhythm. Respiratory: Airway is patent Respiratory effort is even, unlabored, Respiratory pattern is regular, symmetrical. GI: Abdomen is round non-distended. 02:30 Reassessment: Patient and/or family updated on plan of care and expected duration. Pain ha1 level reassessed. Patient is alert, oriented x 3, equal unlabored respirations, skin warm/dry/pink. 03:30 Reassessment: Patient and/or family updated on plan of care and expected duration. Pain ha1 level reassessed. Patient is alert, oriented x 3, equal unlabored respirations, skin warm/dry/pink. pain 3/10 Patient states feeling better. Patient states symptoms have improved. 04:30 Reassessment: Patient appears in no apparent distress at this time. Patient and/or pf1 family updated on plan of care and expected duration. Pain level reassessed. Patient is alert, oriented x 3, equal unlabored respirations, skin warm/dry/pink. Patient states feeling better. Patient states symptoms have improved. 05:30 Reassessment: Patient appears in no apparent distress at this time. Patient and/or pf1 family updated on plan of care and expected duration. Pain level reassessed. Patient is alert, oriented x 3, equal unlabored respirations, skin warm/dry/pink. Patient states feeling better. Patient states symptoms have improved. 06:42 Reassessment: Patient appears in no apparent distress at this time. Patient and/or jb4 family updated on plan of care and expected duration. Pain level reassessed. Patient is alert, oriented x 3, equal unlabored respirations, skin warm/dry/pink. Vital Signs: 01:27 BP 139 / 105; Pulse 96; Resp 16; Temp 96.9(TE); Pulse Ox 100% on R/A; Weight 90.72 kg jb4 (R); Height 5 ft. 10 in. (R); Pain 8/10; 02:00 BP 149 / 94; Pulse 87; Resp 17 S; Pulse Ox 98% on R/A; ha1 03:00 BP 131 / 65; Pulse 62; Resp 17 S; Pulse Ox 96% on R/A; ha1 03:30 BP 132 / 93; Pulse 84; Resp 17 S; Pulse Ox 99% on R/A; ha1 04:03 BP 132 / 94; Pulse 82; Resp 16 S; Temp 97.9; Pulse Ox 100% on R/A; ha1 05:00 BP 116 / 81; Pulse 86; Resp 16; Pulse Ox 98% on R/A; pf1 01:27 Body Mass Index 28.70 (90.72 kg, 177.8 cm) jb4 01:27 Pain Scale: Adult jb4 [place] Coma Score: 04:16 Eye Response: spontaneous(4). Motor Response: obeys commands(6). Verbal Response: sp4 oriented(5). Total: 15. NIH Stroke Scale Scores: 04:16 NIHSS Score: 0 sp4 ED Course: 01:24 Patient arrived in ED. gm2 01:27 Azam Bella MD is Attending Physician. sp4 01:29 Triage completed. jb4 01:29 Arm band placed on right wrist. jb4 01:39 EKG done, by ED staff, reviewed by Azam Bella MD. oe 01:40 No provider procedures requiring assistance completed. Inserted saline lock: 22 gauge pf1 in right antecubital area, using aseptic technique. Blood collected. 01:43 Lorna Reis, RN is Primary Nurse. ha1 01:44 Initial lab(s) drawn, by or, sent to lab. pf1 01:50 XRAY Chest (1 view) In Process Unspecified. EDMS 01:54 Basic Metabolic Panel Sent. ha1 01:54 CBC with Diff Sent. ha1 01:54 LFT's Sent. ha1 01:54 Magnesium Sent. ha1 01:54 NT PRO-BNP Sent. ha1 01:54 PT-INR Sent. ha1 01:54 Troponin HS Sent. ha1 03:01 CT Aorta for Dissection In Process Unspecified. EDMS 05:35 Repeat lab(s) drawn. by me, sent to lab. pf1 05:44 Troponin High Sensitivity Sent. pf1 05:46 EKG done, by ED staff, reviewed by Azam Bella MD. pf1 06:26 Hugh Aguilar MD is Referral Physician. sp4 06:42 Patient has correct armband on for positive identification. Bed in low position. Call jb4 light in reach. Side rails up X 1. Provided Education on: discharge instructions.. Client placed on continuous cardiac and pulse oximetry monitoring. NIBP monitoring applied. cardiac monitor technician on. 06:42 IV discontinued, intact, bleeding controlled, No redness/swelling at site. Pressure jb4 dressing applied. O2 via RA. Administered Medications: 02:20 Drug: NS 0.9% IV 1000 ml IV at 125 ml/hr continuous Route: IV; Rate: 125 ml/hr; Site: ha right antecubital; 05:45 Follow up: Response: No adverse reaction; Marked relief of symptoms pf1 02:20 Drug: Ketorolac IVP 15 mg IVP once Route: IVP; Site: right antecubital; ha1 03:00 Follow up: Response: No adverse reaction; Pain is decreased ha1 02:22 Drug: diphenhydrAMINE IVP 25 mg IVP once Route: IVP; Site: right antecubital; ha1 03:20 Follow up: Response: No adverse reaction; Marked relief of symptoms; Pain is decreased pf1 02:24 Drug: metoCLOPramide IVP 10 mg IVP once; over 1 to 2 minutes Route: IVP; Site: right ha1 antecubital; 03:20 Follow up: Response: No adverse reaction; Marked relief of symptoms; Pain is decreased pf1 02:26 Drug: Ondansetron IVP 4 mg IVP once; over 2 minutes Route: IVP; Site: right antecubital;ha1 03:20 Follow up: Response: No adverse reaction; Marked relief of symptoms pf1 02:28 Drug: morphine IVP or IV 6 mg IVP once over 4 mins Route: IVP; Infused Over: 4 mins; ha1 Site: right antecubital; 03:20 Follow up: Response: No adverse reaction; Marked relief of symptoms; Pain is decreased; pf1 RASS: Alert and Calm (0) Medication: 06:42 VIS not applicable for this client. jb4 Outcome: 06:27 Discharge ordered by . sp4 06:42 Discharged to home ambulatory, jb4 06:42 Condition: stable 06:42 Discharge instructions given to patient, Instructed on discharge instructions, follow up and referral plans. Demonstrated understanding of instructions, follow-up care, 06:43 Patient left the ED. jb4 NIH Stroke Scale - NIH Stroke Score Date: 02/26/2024 Time: 04:16 Total Score = 0 10. Dysarthria (speech clarity - read or repeat words) - 0(Normal) 11. Extinction and Inattention (visual/tactile/auditory/spatial/personal) - 0(No abnormality) 1a. Level of Consciousness (LOC) - 0(Alert) 1b. Level of Consciousness (LOC) (Month \T\ Age) - 0(Both) 1c. LOC Commands (Open \T\ Closes Eyes/Income Tax Auditor) - 0(Both) 2. Best Gaze (Lateral Gaze Paresis) - 0(Normal) 3. Visual Field Loss - 0(No visual loss) 4. Facial Palsy - 0(Normal) 5a. Left Arm: Motor (10-second hold) - 0(No drift) 5b. Right Arm: Motor (10-second hold) - 0(No drift) 6a. Left Leg: Motor (5-second hold - always test supine) - 0(No drift) 6b. Right Leg: Motor (5-second hold - always test supine) - 0(No drift) 7. Limb Ataxia (finger/nose \T\ heel/de - test with eyes open) - 0(Absent) 8. Sensory Loss (pinprick arms/legs/face) - 0(Normal) 9. Best Language: Aphasia (description/naming/reading) - 0(No aphasia) Initials: sp4 Signatures: Dispatcher [employer] EDMS Silviano Dominique RN RN jb4 Negro Campos Heidy, RN RN ha1 Magalys Mcfarland RN RN pf1 Azam Bella MD MD sp4 Farzana Slaughter gm2 Corrections: (The following items were deleted from the chart) 02:10 02:08 EKG done, by ED staff, reviewed by Azam Bella MD oe oe
[2024-02-26 06:58] VITALS: BP 116/81; TEMP 97.9; O2SAT 98
--- NOTE | 2024-02-26 12:22 | RAD REPORT ---
EXAM DESCRIPTION: RAD - Chest Single View - 02/26/2024 1:48 am CLINICAL HISTORY: CHEST PAIN COMPARISON: None TECHNIQUE: Single AP view of the chest. FINDINGS: Lung volumes diminished. Mild bronchovascular crowding. Cardiac silhouette is normal in size. No pneumothorax. No large pleural effusion. No focal consolidation. No acute bony finding. IMPRESSION: 1. No acute cardiopulmonary findings. 2. Low lung volumes with associated hypoventilatory changes. Electronically signed by: Laurie Sosa MD 02/26/2024 02:20 AM CDT Due to temporary technical issues with the PACS/Fluency reporting system, reports are being signed by the in house radiologist without review as a courtesy to ensure prompt reporting. The interpreting r adiologist is fully responsible for the content of the report.
--- NOTE | 2024-02-26 13:17 | EKG ---
Test Date: 2024-02-26 Test Time: 05:27:34 Ict Development Manager: JUAN F MEASUREMENT RESULTS: Intervals: Rate: 82 PA: 176 QRSD: 100 QT: 362 QTc: 422 [place]: P: 44 PA: 176 QRS: 26 T: 47 INTERPRETIVE STATEMENTS: Normal sinus rhythm Normal ECG Compared to ECG 02/26/2024 01:37:18 No significant changes Electronically Signed On 02-26-24 13:16:39 CDT by Hugh Aguilar
--- NOTE | 2024-02-26 13:17 | EKG ---
Test Date: 2024-02-26 Test Time: 01:37:18 Research Chef: BERTIN MEASUREMENT RESULTS: Intervals: Rate: 93 ID: [id number] QRSD: 96 QT: 364 QTc: 452 [place]: P: 32 ID: [id number] QRS: 12 T: 35 INTERPRETIVE STATEMENTS: Normal sinus rhythm Normal ECG No previous ECG available for comparison Electronically Signed On 02-26-24 13:16:46 CDT by Hugh Aguilar
--- NOTE | 2024-02-26 13:54 | RAD REPORT ---
EXAM DESCRIPTION: CT - Angio Aorta For Dissection - 02/26/2024 6:31 am CLINICAL HISTORY: 54 years Male chest pain TECHNIQUE: Following the administration of intravenous contrast, multiple high-resolution axial imag es of the chest, abdomen and pelvis were performed followed by sagittal and coronal reconstructed odell ges. Coronal and sagittal MIP images were also performed.The CT study is performed according to ALARA (as low as reasonably achievable) or ALARA/IMAGE GENTLY, with automatic adjustment of mA and/or kV a ccording to patient size. Performed on: 02/26/2024 2:56 AM COMPARISON: CT chest performed on 08/09/[address] abdomen and pelvis without contrast report from 10/20/2022. These images were not available for review. FINDINGS: CTA CHEST: There is satisfactory visualization and contrast opacification of pulmonary arteries. No definite i ntra-arterial filling defects are identified to suggest acute or chronic pulmonary embolism. The thor acic aorta is normal in caliber and contour without evidence of aneurysm or dissection. The lungs are well expanded and are clear. There is mild bibasilar dependent fibrosis and/or atelecta sis. There is no evidence of a pneumothorax. There are no pleural effusions. The central airways are patent. The heart is normal in size. There is no pericardial effusion. There is no evidence of hilar, mediastinal or axillary lymphadenopathy. No acute osseous abnormality is identified. Non-Angiographic Findings: The visualized portions of the thyroid gland are unremarkable. No acute so ft tissue abnormalities are seen.. CTA ABDOMEN AND PELVIS: Liver: Liver is enlarged and measures approximately 19.5 cm in craniocaudal dimension. No focal hepat ic abnormalities are identified. There is diffusely decreased attenuation of the liver commonly due t o hepatic steatosis. Spleen: The spleen is normal in size and configuration. There is heterogeneous enhancement of the spl een likely related to the arterial phase of contrast-enhancement. Gallbladder and bile duct: The gallbladder is well distended and unremarkable. There is no biliary ductal dilatation. Pancreas: The pancreas is grossly normal in size and configuration. Adrenal Glands: The adrenal glands are normal in size and configuration. Kidneys: The kidneys are normal in size and configuration. There is no evidence of hydronephrosis. Th ere are bilateral nonobstructing renal calculi slightly greater in the left kidney. No definite solid or cystic renal mass lesions are identified. Stomach: The stomach is grossly normal. There is no definite hiatal hernia. Bowel: The bowel gas pattern is non specific and non obstructive. Appendix: The appendix is normal. Free air: There is no evidence of free air. Free fluid: There is no evidence of free fluid. Vasculature: The aorta is normal in caliber and contour. The celiac artery, superior and inferior mes enteric arteries, bilateral renal arteries and iliofemoral arteries are patent and are normal in darrell lubna and contour without significant stenosis. There are no significant atherosclerotic calcifications along the abdominal aorta or branch vessels. The inferior vena cava is grossly unremarkable. Lymphadenopathy: No pathologic lymphadenopathy is identified. Bladder: The bladder is well distended and smooth in contour. Reproductive: The prostate gland is grossly within normal limits. Bones: No acute osseous abnormalities are identified. Soft tissues: No focal soft tissue abnormalities are identified. There are small bilateral fat-contai vickie inguinal hernias. There is a small fat-containing ventral umbilical hernia. IMPRESSION: CTA CHEST: 1. No evidence of pulmonary embolism, aortic aneurysm or aortic dissection. 2. No evidence of acute intrathoracic disease. CTA ABDOMEN AND PELVIS: 1. No evidence of acute intra-abdominal or intrapelvic pathology. 2. Hepatomegaly with diffusely decreased attenuation of the liver commonly due to hepatic steatosis . 3. Bilateral nonobstructing renal calculi slightly greater in the left kidney. 4. Small bilateral fat-containing inguinal hernias. 5. Normal CTA of the abdomen and pelvis. There is no evidence of abdominal aortic aneurysm or disse ction. Electronically signed by: Spring Rao DO 02/26/2024 03:53 AM CDT Due to temporary technical issues with the PACS/Fluency reporting system, reports are being signed by the in house radiologist without review as a courtesy to ensure prompt reporting. The interpreting r adiologist is fully responsible for the content of the report.
== END 2024-02-26 06:43 | disposition home or self-care (01) ==
LOC: ER 01:23
DX: R07.9 Chest pain, unspecified (principal); G43.009 Migraine without aura, not intractable, without status migrainosus
CPT/HCPCS: 93005 ×2; 85025; 80048; 36415; 83735; 85610; 80076; 84443; 84484 ×2; 84439; 83880; 86140; 71275; 74175; 71045; 96375; 96374; 99285; Q9967; J2765; J1200; J2270; J2405; J7030